=== PATIENT | female | born 1960 | race Caucasian/White ===

== ENCOUNTER 2020-02-06 06:16 | Outpatient (REF) | payer BC, SELFPAY ==
[2020-02-06 11:46] LABS: Cholesterol 213 mg/dL; HDL Cholesterol 51 mg/dL; LDL Cholesterol Calculated 139 mg/dl; Triglycerides 119 mg/dL
== END 2020-02-06 06:17 | disposition home or self-care (01) ==
LOC: HO.HMGCLDS 06:16
PROVIDERS: PCP Family Medicine; Visit Provider Family Medicine
DX: E78.00 Pure hypercholesterolemia, unspecified (principal)
CPT/HCPCS: 36415; 80061

== ENCOUNTER 2020-07-29 06:26 | Outpatient (REF) | payer BC, SELFPAY ==
[2020-07-29 11:49] LABS: Cholesterol 229 mg/dL; HDL Cholesterol 67 mg/dL; LDL Cholesterol Calculated 145 mg/dl; Triglycerides 87 mg/dL
== END 2020-07-29 06:27 | disposition home or self-care (01) ==
LOC: HO.HMGCLDS 06:26
PROVIDERS: PCP Family Medicine; Visit Provider Family Medicine
DX: Z00.00 Encounter for general adult medical examination without abnormal findings (principal); E78.5 Hyperlipidemia, unspecified
CPT/HCPCS: 36415; 80061

== ENCOUNTER → 2020-10-08 13:20 | Outpatient (BNVA) | payer BC, SELFPAY | PROVIDERS: PCP Family Medicine; Visit Provider Surgery Vascular Surgery ==

== ENCOUNTER 2020-10-22 12:47 | Outpatient (REF) | payer BC, SELFPAY ==
--- NOTE | ~2020-10-22 | US_ITS ---
EXAMINATION: RIGHT and LEFT LOWER EXTREMITY VENOUS ULTRASOUND (Reflux Exam) CLINICAL INDICATION: Post bilateral greater and lesser saphenous vein ablation COMPARISON: Previous exam December 2006 TECHNIQUE: Color flow triplex imaging and compression Doppler was performed to evaluate both the deep and the superficial systems bilaterally. To evaluate the superficial system, the examination was performed in the upright position. Color-flow Doppler ultrasound and compression ultrasound were utilized. In addition, maneuvers were utilized to demonstrate reflux. FINDINGS: 1. DEEP VENOUS ULTRASOUND OF THE RIGHT LOWER EXTREMITY: Respiratory variation, normal compression and augmented flow are noted in the right common femoral vein as well as the right popliteal vein and there is no evidence of deep venous thrombosis at these locations. There is no evidence of reflux in the deep system in either the common femoral vein or the popliteal vein. There is no evidence of a Porter's cyst. 2. SUPERFICIAL ULTRASOUND WITH DOPPLER OF RIGHT LOWER EXTREMITY: The right great saphenous vein at the saphenofemoral junction measures 6 mm at mid calf 3 mm and at the ankle measures 4 mm. The remainder of the right greater saphenous vein is not seen. There is a 1.3 seconds reflux seen at the saphenofemoral junction, 2.7 second reflux in the mid calf and 1.2 seconds reflux at the ankle. The right small saphenous vein is not seen. There is a 4 mm varicosity off the lesser saphenous vein/saphenofemoral popliteal junction measures 4 mm and demonstrates 2.9 seconds reflux. There is a varicosity in the proximal thigh that measures 3 mm and does not demonstrate reflux. There is a varicosity in the mid thigh measures 4 mm and demonstrates 3.2 seconds reflux. There is a varicosity in the proximal calf that measures 3 mm and demonstrates 3.2 seconds reflux. 3. DEEP VENOUS ULTRASOUND OF THE LEFT LOWER EXTREMITY: Respiratory variation, normal compression and augmented flow are noted in the left common femoral vein as well as the left popliteal vein and there is no evidence of deep venous thrombosis at these locations. There is 1 second reflux at the left common femoral vein and 0.5 second reflux in the mid femoral vein.. . There is no evidence of a Porter's cyst. 4. SUPERFICIAL ULTRASOUND WITH DOPPLER OF LEFT LOWER EXTREMITY: Left great saphenous vein at the saphenofemoral junction measures 6 mm, at mid calf 3 mm and at the ankle measures 3 mm. The remainder of the left greater saphenous vein is not seen. There is an ex sensory lateral greater saphenous vein that measures 2 to 4 mm. This demonstrates 1.6 seconds reflux. There is no reflux demonstrated in the left great saphenous vein. The left small saphenous vein versus remnant measures 1-2 mm and demonstrates 0.5 second reflux. There is a senior mechanical development engineer in the mid calf that measures 2 mm and does not demonstrate reflux. There is a varicosity off the lesser saphenous vein that measures 4 mm and does not demonstrate reflux. There are 2 varicosities in the proximal thigh that measures 3 mm with 2.3 seconds reflux and 4 mm with 2.7 second reflux.. US/US venous duplex LE BI IMPRESSION: No evidence of DVT. Left venous reflux in the common femoral and mid femoral veins entering maximum 1 second. Right: Post ablation changes to the right greater saphenous vein. There is reflux at the saphenofemoral junction in the remnant right greater saphenous vein and in the mid calf and ankle measuring maximum 2.7 second reflux. Right varicosities with reflux. Left: Post ablation changes of the left greater saphenous vein. Reflux in the left greater saphenous vein and midcalf and ankle measuring maximum 2 seconds. Lateral accessory left greater saphenous vein with reflux. Question lesser saphenous vein versus lesser saphenous vein remnant with 0.5 second reflux. Varicosities in the proximal thigh with reflux. COMPARISON: None TECHNIQUE: Ultrasound of the deep veins is performed from the hip to the calf with compression sonography and color and pulse Doppler assessment. Spectral analysis with color-flow imaging is performed. FINDINGS: RIGHT: There is normal venous compression and respiratory variation and augmented flow. The visualized common femoral vein, superficial femoral vein, profunda femoral vein, popliteal vein, and the trifurcation region shows no evidence of deep venous thrombosis. There is no significant popliteal fossa cyst. LEFT: There is normal venous compression and respiratory variation and augmented flow. The visualized common femoral vein, superficial femoral vein, profunda femoral vein, popliteal vein, and the trifurcation region shows no evidence of deep venous thrombosis. There is no significant popliteal fossa cyst. If the patient's symptoms persist, followup ultrasound in 5 days 7 days might be of value to exclude proximal propagation from a non-visualized calf vein. IMPRESSION: No DVT demonstrated in the lower extremity.
== END 2020-10-22 12:48 | disposition home or self-care (01) ==
LOC: HO.US 12:47
PROVIDERS: Visit Provider Surgery Vascular Surgery
DX: I83.12 Varicose veins of left lower extremity with inflammation (principal); I83.893 Varicose veins of bilateral lower extremities with other complications
CPT/HCPCS: 93970

== ENCOUNTER → 2020-11-03 15:32 | Outpatient (BNVA) | payer BC, SELFPAY | PROVIDERS: PCP Family Medicine; Visit Provider Surgery Vascular Surgery ==

== ENCOUNTER → 2020-11-27 08:32 | Outpatient (BNVA) | payer BC, SELFPAY | PROVIDERS: PCP Family Medicine; Visit Provider Surgery Vascular Surgery | DX: I83.12 Varicose veins of left lower extremity with inflammation (principal) | CPT/HCPCS: 36482 ==

== ENCOUNTER 2020-11-30 14:18 | Outpatient (REF) | payer BC, SELFPAY ==
--- NOTE | ~2020-11-30 | US_ITS ---
EXAMINATION: US VENOUS ULTRASOUND WITH DOPPLER LOWER EXTREMITY, LEFT CLINICAL INFORMATION: Status post left saphenous vein on 11/27/2020 COMPARISON: Bilateral lower extremity venous reflux exam on 10/22/2020 TECHNIQUE: Ultrasound of the deep veins is performed from the hip to the calf with compression sonography and color and pulse Doppler assessment. Spectral analysis with color-flow imaging is performed. FINDINGS: There is normal venous compression and respiratory variation and augmented flow. The visualized common femoral vein, superficial femoral vein, profunda femoral vein, popliteal vein, and the trifurcation region shows no evidence of deep venous thrombosis. There is no significant popliteal fossa cyst. Venaseal material seen starting at the level of the knee. If the patient's symptoms persist, followup ultrasound in 5 days 7 days might be of value to exclude proximal propagation from a non-visualized calf vein. US/US venous duplex LE IMPRESSION: No DVT demonstrated in the left lower extremity.
== END 2020-11-30 14:19 | disposition home or self-care (01) ==
LOC: HO.US 14:18
PROVIDERS: PCP Family Medicine; Visit Provider Surgery Vascular Surgery
DX: M79.605 Pain in left leg (principal)
CPT/HCPCS: 93971

== ENCOUNTER → 2020-12-10 15:38 | Outpatient (BNVA) | payer BC, SELFPAY | PROVIDERS: PCP Family Medicine; Referring Provider Family Medicine; Visit Provider Surgery Vascular Surgery ==

== ENCOUNTER → 2021-01-15 09:38 | Outpatient (BNVA) | payer BC, SELFPAY | PROVIDERS: PCP Family Medicine; Referring Provider Family Medicine; Visit Provider Surgery Vascular Surgery | DX: I83.12 Varicose veins of left lower extremity with inflammation (principal) | CPT/HCPCS: 37765 ==

== ENCOUNTER → 2021-01-26 15:38 | Outpatient (BNVA) | payer BC, SELFPAY | PROVIDERS: PCP Family Medicine; Visit Provider Surgery Vascular Surgery ==

== ENCOUNTER 2021-02-05 08:12 | Outpatient (REF) | payer BC, SELFPAY ==
[2021-02-05 12:50] LABS: Alanine Aminotransferase 19 U/L (0-31); Albumin Level 4.5 g/dL (3.5-5.0); Alkaline Phosphatase 57 U/L (39-117); Anion Gap 14 (12-20); Aspartate Amino Transferase 24 U/L (5-31); Bilirubin Total 1.2 mg/dL (0.0-1.0); Blood Urea Nitrogen 17 mg/dL (9-16); Calcium 8.9 mg/dL (8.4-10.2); Carbon Dioxide 25 mmol/L (22-29); Chloride 106 mmol/L (96-108); Cholesterol 217 mg/dL; Estimated Glomerular Filt Rate > 60; Glucose Fasting 96 mg/dL (60-99); HDL Cholesterol 63 mg/dL; LDL Cholesterol Calculated 133 mg/dl; Potassium 4.1 mmol/L (3.3-5.1); Sodium 141 mmol/L (135-145); Total Protein 7.2 g/dL (6.5-8.0); Triglycerides 105 mg/dL
[2021-02-05 13:16] LABS: TSH reflex Free T4 0.69 uIU/mL (0.32-4.0)
== END 2021-02-05 08:13 | disposition home or self-care (01) ==
LOC: HO.HMGCLDS 08:12
PROVIDERS: PCP Family Medicine; Visit Provider Family Medicine
DX: Z00.00 Encounter for general adult medical examination without abnormal findings (principal)
CPT/HCPCS: 36415; 80053; 80061; 84443

== ENCOUNTER → 2021-02-26 12:16 | Outpatient (BNVA) | payer BC, SELFPAY | PROVIDERS: PCP Family Medicine; Visit Provider Nurse Practitioner Family ==

== ENCOUNTER → 2021-05-11 15:41 | Outpatient (BNVA) | payer BC, SELFPAY | PROVIDERS: PCP Family Medicine; Visit Provider Surgery Vascular Surgery ==

== ENCOUNTER 2022-04-15 06:13 | Outpatient (REF) | payer BC, SELFPAY ==
[2022-04-15 13:30] LABS: Alanine Aminotransferase 21 U/L (0-31); Albumin Level 4.3 g/dL (3.5-5.0); Alkaline Phosphatase 57 U/L (39-117); Anion Gap 12 (12-20); Aspartate Amino Transferase 20 U/L (5-31); Bilirubin Total 0.5 mg/dL (0.0-1.0); Blood Urea Nitrogen 15 mg/dL (9-16); Carbon Dioxide 28 mmol/L (22-29); Chloride 106 mmol/L (96-108); Cholesterol 203 mg/dL; Estimated Glomerular Filt Rate > 60; Glucose Fasting 98 mg/dL (60-99); HDL Cholesterol 47 mg/dL; LDL Cholesterol Calculated 132 mg/dl; Potassium 4.3 mmol/L (3.3-5.1); Sodium 142 mmol/L (135-145); TSH reflex Free T4 0.67 uIU/mL (0.32-4.0); Total Protein 6.7 g/dL (6.5-8.0); Triglycerides 121 mg/dL; Vitamin D 25-OH Total 37.3 ng/mL (>30)
== END 2022-04-15 06:14 | disposition home or self-care (01) ==
LOC: HO.HMGCLDS 06:13
PROVIDERS: PCP Family Medicine; Visit Provider Family Medicine
DX: Z00.00 Encounter for general adult medical examination without abnormal findings (principal); E55.9 Vitamin D deficiency, unspecified; Z13.220 Encounter for screening for lipoid disorders; Z13.29 Encounter for screening for other suspected endocrine disorder
CPT/HCPCS: 36415; 80053; 80061; 82306; 84443

== ENCOUNTER 2022-04-22 16:24 | Outpatient (REF) | payer BC, SELFPAY ==
[2022-04-22 18:29] LABS: Appearance Urine Clear; Color Urine Orange; Glucose Urine UA Negative (Negative); Leukocyte Esterase Urine Moderate (2+) (Negative); Nitrite Urine Positive (Negative); PH 5.5 (5.0-9.0); Specific Gravity - Urine 1.025 (1.005-1.025); UMIC TRIGGER UA YES; Urine Blood Negative (Negative); Urine Ketones Negative (Negative); Urine Protein Trace mg/dL (Neg-Trace)
[2022-04-22 18:30] LABS: Bacteria Urine None Seen (None Seen); Hyaline Casts Urine 0-2 /LPF (0-2); WBC Urine >50 /HPF (0-5)
== END 2022-04-22 16:25 | disposition home or self-care (01) ==
LOC: HO.LAB 16:24
PROVIDERS: Visit Provider Family Medicine
DX: R30.0 Dysuria (principal)
CPT/HCPCS: 81001; 87086

== ENCOUNTER → 2022-07-07 15:34 | Outpatient (BNVA) | payer BC, SELFPAY | PROVIDERS: PCP Family Medicine; Visit Provider Surgery Vascular Surgery | DX: Z13.89 Encounter for screening for other disorder (principal) ==

== ENCOUNTER → 2022-07-08 15:44 | Outpatient (BNVA) | payer BC, SELFPAY | PROVIDERS: PCP Family Medicine; Visit Provider Nurse Practitioner Family | DX: Z13.89 Encounter for screening for other disorder (principal) ==

== ENCOUNTER 2022-08-19 10:14 | Outpatient (REF) | payer BC, SELFPAY ==
--- NOTE | ~2022-08-19 | MM_ITS ---
EXAMINATION: BONE DENSITOMETRY CLINICAL INDICATION: Osteoporosis. COMPARISON: Baseline BD dated 12/06/2019. TECHNIQUE: Using a [employer] DXA System (software version: 13.1) manufactured by [employer], dual-energy x-ray absorptiometry was performed of the lumbar spine and left hip. The images are of good technical quality. Summary results are attached. FINDINGS: AP SPINE L1-L4: Current: BMD 0.868 g/cm2, Z-score -1.5, T-score -2.6, osteoporosis, 6.1% increase from baseline (<5% change is not significant). Baseline: BMD 0.818 g/cm2. LEFT FEMUR, NECK: Current: BMD 0.850 g/cm2, Z-score -0.2, T-score -1.4, osteopenia. Baseline: BMD 0.780 g/cm2. LEFT FEMUR, TOTAL: Current: BMD 0.882 g/cm2, Z-score -0.1, T-score -1.0, normal, 2.8% increase from baseline (<5% change is not significant). Baseline: BMD 0.858 g/cm2. IDENTIFIED RISK FACTORS: Menopause, hysterectomy, family history (parent hip fracture), osteoporosis. HISTORY OF FRACTURE: Tibia/fibula, ribs. MEDICATIONS: Calcium or multivitamin. Vitamin D, bisphosphonate. MM/XR DEXA axial skeleton IMPRESSION: 1. DIAGNOSIS: Osteoporosis based on the lowest T-score value of -2.6 in the lumbar spine applying World Health Organization criteria. 2. 10-YEAR FRACTURE RISK PREDICTION, FRAX: According to the guidelines, FRAX calculation should only be performed on patients in the osteopenia bone density category. Therefore, FRAX was not performed on this patient. 3. Treatment Recommendations: NOF guidelines recommend consideration for treatment in postmenopausal women and men age 50 and older presenting with the following: -A hip or vertebral (clinical or morphometric) fracture. -T-score less than or equal to -2.5 at the femoral neck or spine after appropriate evaluation to exclude secondary causes. -Low bone mass at the hip or spine and a 10-year fracture probability by FRAX of greater than or equal to 3% for hip fracture or greater than or equal to 20% for major osteoporotic fracture based on the [place] adapted WHO algorithm. 4. Other Recommendations: All treatment decisions require clinical judgment and consideration of individual patient factors, including patient preferences, comorbidities, previous drug use, risk factors not captured in the FRAX model (e.g. frailty, falls, vitamin D deficiency, increased bone turnover, interval significant decline in bone density) and possible under or overestimation of fracture risk by FRAX. Additional medical evaluation for secondary cause of low bone mineral density may be appropriate. FUTURE SCAN RECOMMENDATION: People with diagnosed cases of osteoporosis or at high risk for fracture should have regular bone mineral density tests. For patients eligible for Medicare, routine testing is allowed once every 2 years. The testing frequency can be increased to one year for patients who have rapidly progressing disease, those who are receiving or discontinuing medical therapy to restore bone mass, or have additional risk factors.
== END 2022-08-19 10:15 | disposition home or self-care (01) ==
LOC: HO.MAMMO 10:14
PROVIDERS: Visit Provider Family Medicine
DX: M81.0 Age-related osteoporosis without current pathological fracture (principal)
CPT/HCPCS: 77080

== ENCOUNTER → 2022-08-26 10:27 | Outpatient (BNVA) | payer BC, SELFPAY | PROVIDERS: PCP Family Medicine; Visit Provider Surgery Vascular Surgery | DX: I83.11 Varicose veins of right lower extremity with inflammation (principal) | CPT/HCPCS: 37765 ==

== ENCOUNTER → 2022-09-08 15:28 | Outpatient (BNVA) | payer BC, SELFPAY | PROVIDERS: PCP Family Medicine; Visit Provider Surgery Vascular Surgery ==

== ENCOUNTER 2022-09-23 10:43 | Day surgery (SDC) | payer BC, SELFPAY ==
[2022-09-21 15:32] VITALS: BMI 26.7
--- NOTE | 2022-09-22 10:15 | P.CONAN_ITS ---
Documented by User: Dipika Mejia NP 09/22/22 10:17 HPI - Anesthesia Eval Consult details Narrative: 62yo F for Colonoscopy s/p L mastectomy 2021 [facility] Active Problems Active Problems: All Active Problems (Updated 09/21/22 @ 15:33 by Mireille Graves RN) Hyperlipidemia (Acute) Osteoporosis (Acute) Polyarthralgia (Acute) Varicose veins of left lower extremity with inflammation (Acute) Varicose veins of right lower extremity with inflammation (Acute) Adult general medical exam (Acute) Screening for colon cancer (Acute) Screening for cervical cancer (Acute) Breast cancer screening by mammogram (Acute) Breast cancer (Acute) Dysuria (Acute) Past Medical History Medical History (Updated 09/21/22 @ 15:33 by Mireille Graves RN) Breast cancer Hyperlipidemia Osteoporosis Varicose vein of leg Family History Family History Father Squamous cell carcinoma in situ Mother No problems noted. Sister No problems noted. Brother No problems noted. Brother No problems noted. Daughter No problems noted. Daughter No problems noted. Surgical History Surgical History (Updated 09/21/22 @ 15:31 by Mireille Graves RN) H/O colonoscopy History of hysterectomy History of open reduction and internal fixation (ORIF) procedure Hx laparoscopic cholecystectomy Hx of mastectomy Hx of varicose vein stripping Social History Social History Patient Tobacco Use Status: Former Tobacco user e-Cigarette/Vaping Use: Never Used Second Hand Smoke Exposure: No Substance Use Frequency: Occasionally Are you DNR?: No Advance Directives: No Advance Directives Information Provided: Yes Nutrition Risks: No Nutritional Risk service: No Current occupational status: employed 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 occupational exposures/hazards: No Cognitive needs: No Hearing needs: No Vision needs: No Meds Allergies Allergy/AdvReac Type Severity Reaction Status Date / Time house dust Allergy Mild Nasal Verified 09/08/22 15:37 congestion Seasonal Allergies Allergy Mild watery, Verified 09/08/22 15:37 cough Home Medications Medication Instructions Recorded Confirmed Last Taken Type alendronate 70 mg tablet 70 mg PO QWEEK 02/14/20 09/21/22 Unknown History tizanidine 4 mg tablet 4 mg PO BEDTIME PRN Muscle Spasm 02/14/20 09/21/22 Unknown History calcium carbonate 600 mg calcium 600 mg PO DAILY 08/14/20 09/21/22 Unknown History (1,500 mg) tablet (Calcium) lactobacillus combination no.8 3 3,000 mmu cells PO DAILY 08/14/20 09/21/22 Unknown History billion cell capsule (Adult Probiotic) [id number]-gow-mqihi ac 400 1 tab PO DAILY 08/14/20 09/21/22 Unknown History mcg-calcium carb 500 mg-vit K1 20 mcg tablet (Women's 50 Plus Multivitamin) psyllium husk 0.4 gram capsule 0.4 g PO DAILY 08/14/20 09/21/22 Unknown History (Fiber (psyllium husk)) calcipotriene 0.005 % topical cream 1 applic topical BID PRN skin rash 02/23/22 09/21/22 Unknown History clobetasol 0.05 % topical cream 1 appl topical TID PRN Skin 02/23/22 09/21/22 Unknown History Irritation red yeast rice 600 mg tablet 600 mg PO BID 02/23/22 09/21/22 Unknown History estradiol 10 mcg vaginal tablet 10 mcg vaginal DAILY 07/07/22 09/21/22 Unknown History (Yuvafem) mirabegron 25 mg tablet,extended 25 mg PO DAILY 07/07/22 09/21/22 Unknown History release 24 hr (Myrbetriq) D-harshal PO DAILY 07/08/22 07/08/22 Unknown History glucosamine-chondroitin 250 mg-200 2 tab PO DAILY 07/08/22 09/21/22 Unknown History mg tablet (Osteo Bi-Flex) omeprazole 20 mg capsule,delayed 20 mg PO DAILY PRN acid reflux 07/08/22 09/21/22 Unknown History release Exam Exam Date and Time: September 22, 2022 1015 Height,Weight and Vital Signs: Height 5 ft 3 in Weight 68.492 kg Pertinent Lab Results Pertinent Lab Results: Laboratory Tests 07/15/19 04/15/22 06:16 06:22 WBC 5.6 Hgb 14.2 Hct 42.3 Plt Count 263 Sodium 142 Potassium 4.3 Chloride 106 Carbon Dioxide 28 BUN 15 Creatinine 0.71 Assessment and Plan Assessment Anesthesia Assessment: Chart Reviewed Documented by User: Reji Cisneros MD 09/23/22 11:10 PMFSH Past Medical History Medical History (Updated 09/21/22 @ 15:33 by Mireille Graves RN) Breast cancer Hyperlipidemia Osteoporosis Varicose vein of leg Family History Family History Father Squamous cell carcinoma in situ Mother No problems noted. Sister No problems noted. Brother No problems noted. Brother No problems noted. Daughter No problems noted. Daughter No problems noted. Family history of problems with anesthesia: No Surgical History Surgical History (Updated 09/21/22 @ 15:31 by Mireille Graves RN) H/O colonoscopy History of hysterectomy History of open reduction and internal fixation (ORIF) procedure Hx laparoscopic cholecystectomy Hx of mastectomy Hx of varicose vein stripping History of Problems with Anesthesia: No Social History Social History Patient Tobacco Use Status: Former Tobacco user e-Cigarette/Vaping Use: Never Used Second Hand Smoke Exposure: No Substance Use Frequency: Occasionally Are you DNR?: No Advance Directives: No Advance Directives Information Provided: Yes Nutrition Risks: No Nutritional Risk service: No Current occupational status: employed 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 occupational exposures/hazards: No Cognitive needs: No Hearing needs: No Vision needs: No Meds Allergies Allergy/AdvReac Type Severity Reaction Status Date / Time house dust Allergy Mild Nasal Verified 09/08/22 15:37 congestion Seasonal Allergies Allergy Mild watery, Verified 09/08/22 15:37 cough Home Medications Medication Instructions Recorded Confirmed Last Taken Type alendronate 70 mg tablet 70 mg PO QWEEK 02/14/20 09/21/22 Unknown History tizanidine 4 mg tablet 4 mg PO BEDTIME PRN Muscle Spasm 02/14/20 09/21/22 Unknown History calcium carbonate 600 mg calcium 600 mg PO DAILY 08/14/20 09/21/22 Unknown History (1,500 mg) tablet (Calcium) lactobacillus combination no.8 3 3,000 mmu cells PO DAILY 08/14/20 09/21/22 Unknown History billion cell capsule (Adult Probiotic) fruqtxsl-shn-jkuel ac 400 1 tab PO DAILY 08/14/20 09/21/22 Unknown History mcg-calcium carb 500 mg-vit K1 20 mcg tablet (Women's 50 Plus Multivitamin) psyllium husk 0.4 gram capsule 0.4 g PO DAILY 08/14/20 09/21/22 Unknown History (Fiber (psyllium husk)) calcipotriene 0.005 % topical cream 1 applic topical BID PRN skin rash 02/23/22 09/21/22 Unknown History clobetasol 0.05 % topical cream 1 appl topical TID PRN Skin 02/23/22 09/21/22 Unknown History Irritation red yeast rice 600 mg tablet 600 mg PO BID 02/23/22 09/21/22 Unknown History estradiol 10 mcg vaginal tablet 10 mcg vaginal DAILY 07/07/22 09/21/22 Unknown History (Yuvafem) mirabegron 25 mg tablet,extended 25 mg PO DAILY 07/07/22 09/21/22 Unknown History release 24 hr (Myrbetriq) D-harshal PO DAILY 07/08/22 07/08/22 Unknown History glucosamine-chondroitin 250 mg-200 2 tab PO DAILY 07/08/22 09/21/22 Unknown History mg tablet (Osteo Bi-Flex) omeprazole 20 mg capsule,delayed 20 mg PO DAILY PRN acid reflux 07/08/22 09/21/22 Unknown History release Exam Airway Mallampati Class: II TM Dist: >3cm Neck ROM: Full Assessment and Plan Assessment Anesthesia Assessment: Anesthesia Plan Discussed Final Anesthetic Review Family History of Problems with Anesthesia: No History of Problems with Anesthesia: No NPO: Yes ASA Class: II Final Preanesthetic Review: No Changes in Pt Med Stat, Meds/Allgs Chart Reviewed, Consent Obtained/Reviewed and Anes Risks/Benef Reviewed Patient Risk: Low Procedure Risk: Low Anesthetic Plan Anesthetic Plan: MAC: Disposition: Standard PACU
[2022-09-23] MEDS: Lactated Ringers 1,000 ML 100 ML IVCONT (11:05)
[2022-09-23 11:17] VITALS: BP 134/81; PULSE 82; RESP 18; TEMP 36.7; O2SAT 99
--- NOTE | 2022-09-23 11:29 | MHC.SHP ---
Pre-Procedural Eval Section A Date of Service: 09/23/22 The patient is an INPATIENT: No The History & Physical has been completed within 30 days and I have reviewed it.: No Section B Chief Complaint: Screening Relevant Family History (Specify if Yes): No Relevant Social History: Tobacco Use (Former smoker) Present Medications: see Short Stay Collaborative assessment Medical History: Significant History (Hyperlipidemia, osteoporosis, history of breast cancer) History of Previous Operations: Relevant previous surgery/procedure and date(s) (H/O colonoscopy History of hysterectomy History of open reduction and internal fixation (ORIF) procedure Hx of mastectomy) Allergies: Allergies Allergy/AdvReac Type Severity Reaction Status Date / Time house dust Allergy Mild Nasal Verified 09/08/22 15:37 congestion Seasonal Allergies Allergy Mild watery, Verified 09/08/22 15:37 cough Review of Systems Sugical H&P ROS: Negative: Constitution, Cardiovascular, Respiratory and Gastrointestinal Exam Surgical H&P Exam: Normal: Heart, Normal: Lungs, Normal: Extremities and Normal: Abdomen Plan Diagnosis/Plan: Unchanged I have reviewed the history and physical and performed a pertinent physical examination on my patient. No changes have occurred unless specified. Time Spent With Patient Time: Total time managing care of this patient today ____ minutes.
--- NOTE | 2022-09-23 12:03 | P.OP_ITS ---
Operative Note Operative Note Date of Service: 09/23/22 Narrative: COLONOSCOPY TILL CECUM Pre-op diagnosis: Colon cancer screening Post-op diagnosis:? Diverticulosis Endoscopist:? Shanelle Em MD Anesthesia:?MAC Consent: Indications for the procedure and potential complications of bleeding, perforation, reaction to medications and missed diagnosis were discussed with the patient and informed consent was obtained. Instrument: Olympus PCF H 190 L variable stiffness pediatric colonoscope Monitoring: Vital signs and clinical assessment, intermittent blood pressure monitoring, continuous EKG monitoring, Pulse oximetry and Carbon Dioxide monitoring were done throughout the procedure. Please see anesthesia flowsheet. Colon withdrawl time was 14 minutes. Procedure: The patient was placed in the left lateral decubitis position and pre-procedure medications were administered. After a digital rectal examination of the ano-rectum, the video colonoscope was inserted into the rectum and advanced through the colon to the cecum. The colonoscope was slowly withdrawn in a retrograde panoramic fashion and the colon mucosa was carefully examined including a retroflexed view of the rectum. Findings and interventions are described below. Procedure Difficulty: Without difficulty Findings: Terminal Ileum: Not evaluated Cecum: Normal Ascending Colon: Normal Transverse Colon: Normal Descending Colon: Normal Sigmoid Colon: Moderate diverticulosis Rectum: Normal Ano-rectum: Normal Colon preparation: Excellent Impression and Post Procedure Diagnosis: Colonoscopy Findings: No polyps were detected Moderate diverticulosis seen in the sigmoid colon Plan: Patient has an appointment on 10/07/22 in the GI Clinic with Eunice Mejias FNP- [facility]. Repeat Colonoscopy in 10 years. Above findings were reviewed with the patient and diverticulosis handout was given in the discharge area
[2022-09-23 12:44] VITALS: BP 104/60; PULSE 78; RESP 16; TEMP 36.1; O2SAT 98
[2022-09-23 12:59] VITALS: BP 121/74; PULSE 80; RESP 16; TEMP 36.4; O2SAT 98
[2022-09-23 13:14] VITALS: BP 132/83; PULSE 75; RESP 14; TEMP 36.8; O2SAT 98
== END 2022-09-23 13:35 | disposition home or self-care (01) ==
PROVIDERS: PCP Family Medicine; Visit Provider Internal Medicine Gastroenterology
PROC: 0DJD8ZZ Inspection of Lower Intestinal Tract, Via Natural or Artificial Opening Endoscopic (ICD-10-PCS; CPT 45378; principal; 2022-09-23 12:20)
DX: Z12.11 Encounter for screening for malignant neoplasm of colon (principal); K57.30 Diverticulosis of large intestine without perforation or abscess without bleeding; K21.9 Gastro-esophageal reflux disease without esophagitis; E78.5 Hyperlipidemia, unspecified; M81.0 Age-related osteoporosis without current pathological fracture; J30.2 Other seasonal allergic rhinitis; Z79.899 Other long term (current) drug therapy; Z85.3 Personal history of malignant neoplasm of breast; Z90.12 Acquired absence of left breast and nipple; Z98.890 Other specified postprocedural states; Z87.891 Personal history of nicotine dependence
CPT/HCPCS: 45378

== ENCOUNTER 2022-10-07 07:21 | Outpatient (REF) | payer BC, SELFPAY ==
[2022-10-07 11:59] LABS: Appearance Urine Cloudy; Color Urine Yellow; Glucose Urine UA Negative (Negative); Leukocyte Esterase Urine Moderate (2+) (Negative); Nitrite Urine Negative (Negative); PH 6.5 (5.0-9.0); UMIC TRIGGER UA YES; Urine Blood Negative (Negative); Urine Ketones Negative (Negative); Urine Protein Negative (Neg-Trace)
[2022-10-07 12:10] LABS: Cholesterol 232 mg/dL; HDL Cholesterol 52 mg/dL; LDL Cholesterol Calculated 162 mg/dl; Triglycerides 90 mg/dL
[2022-10-07 12:17] LABS: Bacteria Urine 1+ (None Seen); RBC Urine 0-2 /HPF (0-2); Squamous Epithelial Cell Urine >20 /HPF (0-2); WBC Urine 21-50 /HPF (0-5)
[2022-10-13 15:58] LABS: Progesterone <0.1 ng/mL
[2022-10-14 20:28] LABS: Estrogen 97.5 pg/mL
== END 2022-10-07 07:22 | disposition home or self-care (01) ==
LOC: HO.HMGCLDS 07:21
PROVIDERS: PCP Family Medicine; Visit Provider Family Medicine
DX: Z00.00 Encounter for general adult medical examination without abnormal findings (principal); E78.5 Hyperlipidemia, unspecified
CPT/HCPCS: 36415; 80061; 81001; 82672; 84144

== ENCOUNTER 2023-01-13 10:35 | Outpatient (AMB) | payer BC, SELFPAY ==
[2023-01-13 10:39] VITALS: BP 128/64; PULSE 87; RESP 14; TEMP 37.1; O2SAT 98; BMI 26.0
--- NOTE | 2023-01-13 10:39 | MHC.PC.OV ---
Vital Signs 01/13/23 10:39 Height 5 ft 4 in Weight 151 lb 8 oz BMI 26.0 BP 128/64 Blood Pressure Location Lt brachial Position Sitting Respiration 14 Pulse 87 Pulse Source Pulse Oximeter Temp 98.7 F Temp Source Oral Pulse Oximetry (%) 98 Oxygen Delivery Method Room Air Intake Visit Reasons: f/u [facility] Intake Note: Patient is here for a follow up. Patient would like to follow up about the bone density results as well. 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 Had started her on artovastatin 20mg daily. No recent lipid panel to review. She has been taking her artovastatin and denies any problems with this. She is tested positive for osteoporosis. T-score improved on alendronate from -3.0 to -2.6. PFSH Medical History (Updated 09/21/22 @ 15:33 by Mireille Graves RN) Varicose vein of leg Breast cancer Hyperlipidemia Osteoporosis Surgical History (Updated 09/21/22 @ 15:31 by Mireille Graves RN) Hx laparoscopic cholecystectomy Hx of varicose vein stripping H/O colonoscopy Hx of mastectomy History of open reduction and internal fixation (ORIF) procedure History of hysterectomy Family History Father Squamous cell carcinoma in situ Mother No problems noted. Sister No problems noted. Brother No problems noted. Brother No problems noted. Daughter No problems noted. Daughter No problems noted. 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 Current occupational exposures/hazards: No Cognitive needs: No Hearing needs: No Vision needs: No Physical exam (Primary Care) Vital Signs: Last Vital Signs Temp 98.7 F 01/13/23 10:39 Pulse 87 01/13/23 10:39 Resp 14 01/13/23 10:39 BP 128/64 01/13/23 10:39 Pulse Ox 98 01/13/23 10:39 Oxygen Delivery Method Room Air 01/13/23 10:39 BMI result Body Mass Index 26.0 Tobacco/Smoking Status: Tobacco use Status Tobacco use date assessed 10/28/22 01/13/23 10:47 Patient Tobacco Use Status Former Tobacco user 01/13/23 10:47 e-Cigarette/Vaping Use Never Used 01/13/23 10:47 Assessment and Plan Assessment & Plan (1) Hyperlipidemia: Code(s): E78.5 - Hyperlipidemia, unspecified Plan: Patient was started on atorvastatin at her last visit. She is tolerating this well. She will have her labs drawn prior to her next visit in week follow-up on lipid levels (2) Breast cancer: Comment: left mastectomy January 05, 2022. [facility]. Code(s): C50.919 - Malignant neoplasm of unspecified site of unspecified female breast Plan: Currently stable. She has an upcoming ultrasound scheduled. Follow-up with Hematology-Oncology as recommended (3) Osteoporosis: Code(s): M81.0 - Age-related osteoporosis without current pathological fracture Plan: T-score as improved on alendronate from -3.0 to -2.6. Continue alendronate Orders: Orders Comprehensive [place]. Panel Fast Today E78.5 - Hyperlipidemia, unspecified, Z00.00 - Encounter for general adult medical examination without abnormal findings Lipid Panel Today E78.5 - Hyperlipidemia, unspecified, Z00.00 - Encounter for general adult medical examination without abnormal findings Thyroid Stimulating Hormone Today E03.9 - Hypothyroidism, unspecified, E78.5 - Hyperlipidemia, unspecified Complete Blood Count Auto Diff Today E78.5 - Hyperlipidemia, unspecified, Z00.00 - Encounter for general adult medical examination without abnormal findings Triiodothyronine T3 Total Today E03.9 - Hypothyroidism, unspecified, E78.5 - Hyperlipidemia, unspecified Free T4 (Free Thyroxine) Today E03.9 - Hypothyroidism, unspecified, E78.5 - Hyperlipidemia, unspecified UA and rflx microscopic Today E78.5 - Hyperlipidemia, unspecified, Z00.00 - Encounter for general adult medical examination without abnormal findings Coding Level of Care Code Est Pt Level 3 (43681) Diagnoses Hyperlipidemia E78.5 Breast cancer C50.919 Osteoporosis M81.0
== END 2023-01-13 11:34 | disposition home or self-care (01) ==
PROVIDERS: PCP Family Medicine; Visit Provider Family Medicine
DX: E78.5 Hyperlipidemia, unspecified (principal); C50.919 Malignant neoplasm of unspecified site of unspecified female breast; M81.0 Age-related osteoporosis without current pathological fracture
CPT/HCPCS: 99213

== ENCOUNTER 2023-04-14 06:25 | Outpatient (REF) | payer BC, SELFPAY ==
[2023-04-14 12:05] LABS: MANUAL DIFF FLAG NO
[2023-04-14 12:13] LABS: Appearance Urine Clear; Color Urine Yellow; Glucose Urine UA Negative (Negative); Leukocyte Esterase Urine Negative (Negative); Nitrite Urine Negative (Negative); PH 6.5 (5.0-9.0); Urine Blood Negative (Negative); Urine Ketones Negative (Negative); Urine Protein Negative (Neg-Trace)
[2023-04-14 12:36] LABS: Basophils Absolute Auto 0.1 X10*3/uL (0.0-0.2); Basophils Percent Auto 1.1 % (0-2); Eosinophils Absolute Auto 0.1 X10*3/uL (0.0-0.4); Eosinophils Percent Auto 2.5 % (0-4); Hematocrit 40.2 % (37.0-47.0); Hemoglobin 13.4 g/dl (12.0-16.0); Imm Gran Abs Auto 0.02 X10*3/uL (0.00-0.03); Imm Gran Pct Auto 0.4 % (0.0-0.4); Lymphocytes Absolute Auto 1.6 X10*3/uL (1.2-4.9); Lymphocytes Percent Auto 28.3 % (20-40); Mean Corpuscular HGB Conc 33.3 g/dl (31.0-35.0); Mean Corpuscular Hemoglobin 32.4 pg (27.0-33.0); Mean Corpuscular Volume 97.1 fL (80.0-98.0); Mean Platelet Volume 10.7 fL (9.4-12.3); Monocytes Absolute Auto 0.4 X10*3/uL (0.1-1.2); Monocytes Percent Auto 7.5 % (2-11); Neutrophils Absolute Auto 3.4 x10*3/uL (2.0-8.3); Neutrophils Percent Auto 60.2 % (45-73); Platelet Count 258 X10*3/uL (160-400); Red Blood Count 4.14 X10*6/uL (4.20-5.50); Red Cell Distribution Width 13.1 % (11.0-16.0); White Blood Count 5.6 X10*3/uL (4.8-10.8)
[2023-04-14 13:15] LABS: Alanine Aminotransferase 26 U/L (0-31); Albumin Level 4.5 g/dL (3.5-5.0); Alkaline Phosphatase 64 U/L (39-117); Anion Gap 11 (12-20); Aspartate Amino Transferase 25 U/L (5-31); Bilirubin Total 0.6 mg/dL (0.0-1.0); Blood Urea Nitrogen 19 mg/dL (9-16); Calcium 9.4 mg/dL (8.4-10.2); Carbon Dioxide 28 mmol/L (22-29); Chloride 107 mmol/L (96-108); Cholesterol 151 mg/dL (<200); Estimated Glomerular Filt Rate > 60; Glucose Fasting 101 mg/dL (60-99); HDL Cholesterol 65 mg/dL (>40); LDL Cholesterol Calculated 73 mg/dL (<100); Sodium 142 mmol/L (135-145); Total Protein 7.2 g/dL (6.5-8.0); Triglycerides 65 mg/dL (<150)
[2023-04-14 13:49] LABS: Thyroid Stimulating Hormone 0.81 uIU/mL (0.32-4.0)
[2023-04-15 04:59] LABS: Triiodothyronine T3 Total 126 ng/dL (76-181)
== END 2023-04-14 06:26 | disposition home or self-care (01) ==
LOC: HO.HMGCLDS 06:25
PROVIDERS: PCP Family Medicine; Visit Provider Family Medicine
DX: Z00.00 Encounter for general adult medical examination without abnormal findings (principal); E03.9 Hypothyroidism, unspecified; E78.5 Hyperlipidemia, unspecified; R30.0 Dysuria
CPT/HCPCS: 36415; 80053; 80061; 81003; 84439; 84443; 84480; 85025

== ENCOUNTER 2023-04-28 10:44 | Outpatient (AMB) | payer BC, SELFPAY ==
--- NOTE | 2023-04-28 11:11 | MHC.PC.OV ---
Vital Signs 04/28/23 11:12 Height 5 ft 4 in Weight 150 lb BMI 25.7 BP 128/72 Blood Pressure Location Rt brachial Position Sitting Respiration 13 Pulse 80 Pulse Source Pulse Oximeter Pulse Oximetry (%) 100 Oxygen Delivery Method Room Air Intake Visit Reasons: CPE with f/u labs and health maintenance Intake Note: Patient is here for her physical and reports she had her labs done on 04/14/23. Patient reports she has had her OBGYN physical through [facility] and a recent mammogram through [facility] 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 Accompanied by: Self / Same As Patient Allergies house dust Allergy (Mild, Verified 04/28/23 11:17) Nasal congestion Seasonal Allergies Allergy (Mild, Verified 04/28/23 11:17) watery, cough Medication List - Last Reconciled 04/28/23 by Bonilla Gomez MD alendronate 70 mg PO QWEEK atorvastatin 20 mg PO BEDTIME 30 days atorvastatin 20 mg PO BEDTIME calcium carbonate (Calcium) 600 mg PO DAILY [D-harshal PO DAILY] estradiol (Yuvafem) 10 mcg vaginal DAILY glucosamine-chondroitin 250-200 mg (Osteo Bi-Flex) 2 tabs PO DAILY lactobacillus combination no.8 (Adult Probiotic) 3,000 mmu cells PO DAILY mirabegron ER (Myrbetriq) 25 mg PO DAILY pa-ced-spncj-calcium carb-K1 400 mcg-500 mg calcium-20 mcg (Women's 50 Plus Multivitamin) 1 tab PO DAILY omeprazole 20 mg PO DAILY psyllium husk (Fiber (psyllium husk)) 0.4 grams PO DAILY Tobacco use date assessed: 04/28/23 Dental Screening Dental Screen Date: 04/28/23 Did you have a dental visit in the last 12 months?: Yes Did you have a dental problem in the last 6 months where you did not have access to dental care?: No Was dental information given to patient?: Patient has dentist HPI CPE with f/u labs and health maintenance HPI Details 63 y/o female presents for a CPE with f/u labs and health maintenance. Labs were drawn 04/14/23. Reviewed labs with pt. Elevated fasting glucose of 101. Triglycerides 65. TC 151. LDL 73. HDL 65. She is on artovastatin 20mg. She reports she is tolerating artovastatin well. [facility] Medical History Varicose vein of leg Breast cancer Hyperlipidemia Osteoporosis Surgical History Hx laparoscopic cholecystectomy Hx of varicose vein stripping H/O colonoscopy Hx of mastectomy History of open reduction and internal fixation (ORIF) procedure History of hysterectomy Family History (Updated 04/28/23 @ 11:20 by Jovanna Yousif CMA) Father Squamous cell carcinoma in situ Mother No problems noted. Sister No problems noted. Brother No problems noted. Brother No problems noted. Daughter No problems noted. Daughter No problems noted. 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 1. Little interest or pleasure in doing things: not at all 2. Feeling down, depressed, or hopeless: not at all 3. Trouble falling or staying asleep, or sleeping too much: not at all 4. Feeling tired or having little energy: not at all 5. Poor appetite or overeating: not at all 6. Feeling bad about yourself - or that you are a failure or have let yourself or your family down: not at all 7. Trouble concentrating on things, such as reading the newspaper or watching television: not at all 8. Moving or speaking so slowly that other people could have noticed. Or the opposite - being so fidgety or restless that you have been moving around a lot more than usual: not at all 9. Thoughts that you would be better off or of hurting yourself in some way: not at all Total score: 0 Depression Screening Interpretation: Negative Depression Screening Done: Yes 32548 - PHQ-9 Billing: Yes Source: Developed by Drs. Nacho Alvarado, Xavier Gates and colleagues, with an educational eliseo from [employer]. Thrive Questionnaire Date Thrive assessed: 04/28/23 I am a: Patient What is your living situation today?: I have a steady place to live Within the past 12 months, did the food you bought not last and you didn't have the money to get more?: Never true Within the past 12 months, did you worry whether your food would run out before you got money to buy more?: Never true Do you have trouble paying for medicines?: No Do you have trouble getting transportation to medical appointments?: No Do you have trouble paying your heating and electricity bill?: No Do you have trouble taking care of your child, family member or friend?: No Do you have trouble with day-to-day activities such as bathing, preparing meals, shopping, managing finances, etc.?: No Are you currently unemployed and looking for a job?: No Are you interested in more education?: No Please select the resources that you would like help with: None Currently or been in a relationship where the following occur: no concerns reported AUDIT C Alcohol Use Questionnaire (AUDIT-C) 1. How often do you have a drink containing alcohol?: Never 3. How often do you have six or more drinks on one occasion?: Never Total Score: 0 KANDACE-7 AMB Questionnaire KANDACE-7 Date KANDACE - 7 assessed: 04/28/23 Feeling nervous, anxious, or on edge: 0 = Not at all Not being able to stop or control worryin = Not at all Worrying too much about different things: 0 = Not at all Trouble relaxin = Not at all Being so restless that it is hard to sit still: 0 = Not at all Becoming easily annoyed or irritable: 0 = Not at all Feeling afraid as if something awful might happen: 0 = Not at all Total KANDACE-7 score (0-4 normal; 5-9 mild; 10-14 moderate; 15-21 severe): 0 Source: Developed by Iza Wan Kurt Kroenke and colleagues, with an educational eliseo from [employer]. KANDACE-7 Assessment Billing KANDACE-7 Assessment Tool: KANDACE-7 Assessment 74151 Review of Systems Const Denies chills, Denies fatigue, Denies fever(s), Denies headache(s) and Denies weakness Eyes Denies change in vision ENT Denies dizziness, Denies headache(s), Denies hearing loss, Denies nasal congestion, Denies sinus pain, Denies sinus pressure and Denies sore throat Card Denies chest pain, Denies lightheadedness, Denies dyspnea and Denies other (palpitations) Resp Denies cough, Denies dyspnea and Denies wheezing GI Denies abdominal pain, Denies melena, Denies hematochezia, Denies change in bowel habits, Denies dyspepsia and Denies nausea Denies hematuria and Denies dysuria Musc Denies abnormal gait, Denies myalgias, Denies arthralgias, Denies numbness and Denies tingling Skin/Breast Denies rash, Denies unusual bruising and Denies wounds Neuro Denies abnormal gait, Denies dizziness, Denies headache(s), Denies memory loss, Denies numbness, Denies Sensory deficit (Neuro), Denies tingling and Denies weakness Psych Denies anxiety, Denies depression and Denies memory loss Endo Denies cold intolerance, Denies fatigue, Denies heat intolerance, Denies polydipsia and Denies polyuria Ralph/Lymph Denies easy bleeding and Denies easy bruising Aller/Immun Denies wheezing Physical exam (Primary Care) Vital Signs: Last Vital Signs Pulse 80 04/28/23 11:12 Resp 13 04/28/23 11:12 BP 128/72 04/28/23 11:12 Pulse Ox 100 04/28/23 11:12 Oxygen Delivery Method Room Air 04/28/23 11:12 BMI result Body Mass Index 25.7 Tobacco/Smoking Status: Tobacco use Status Tobacco use date assessed 04/28/23 04/28/23 11:24 Patient Tobacco Use Status Former Tobacco user 04/28/23 11:24 e-Cigarette/Vaping Use Never Used 04/28/23 11:24 PHQ-9: PHQ-9 Score PHQ-9: Total score 0 04/28/23 11:54 Depression Screening Interpretation: Negative Thrive Assessment: Date of Thrive Assessment Date Thrive assessed 04/28/23 04/28/23 11:24 Currently or been in a relationship where the following occur: no concerns reported Const General: no acute distress, well developed, alert and awake Nutritional Appearance: well nourished Orientation/consciousness: patient oriented x3 HENMT Head: Yes normocephalic and Yes atraumatic Ears: hearing grossly normal bilaterally and TM's normal bilaterally General nose exam: Normal external nose present and Normal nares present Mouth: Normal oral and palatal mucosa present and moist mucous membranes Teeth and gingiva: dentition normal Throat: Yes posterior oropharynx normal Eyes General: appearance normal, both eyes and all related structures Pupils: Equal, round and reactive pupils present and Pupil accommodation reflex normal EOM: EOMs intact bilaterally Neck Neck: Yes normal visual inspection, Yes no lymphadenopathy and Yes trachea midline Thyroid: Thyroid normal Carotids: no bruits Lymphatic: no lymphadenopathy noted Chest Chest palpation & inspection: normal inspection of the chest Resp Effort & Inspection: normal respiratory effort Auscultation: clear to auscultation bilaterally Cardio Rate: regular rate Rhythm: regular rhythm Heart sounds: S1 normal heart sound present, S2 normal heart sound present, no gallops, no murmurs and no rubs Bruits: no abdominal aortic bruits and no carotid bruits GI Palpation (GI): No Abdominal aortic bruit present, Soft to palpation, nontender, No hepatosplenomegaly present and No Rebound tenderness present Auscultation: normal bowel sounds General: Yes no CVA tenderness Back/Spine/Pelvis Back: no CVA tenderness Cervical Spine: cervical ROM normal and No Cervical spine tenderness Thoracic/Lumbar Spine: thoraco-lumbar ROM normal, No pain with thoraco-lumbar ROM, No thoracic spinal tenderness and No lumbar spinal tenderness Skin Lesions: no lesions Rashes: no rashes Trauma: no lacerations or abrasions Wounds: no wounds Nails: normal Neuro General: patient oriented x3 Cranial nerves: Yes Equal, round and reactive pupils present Cognition (Neuro): normal cognition Gait exam (Neuro): Normal gait present Motor exam (neuro): 5/5 motor strength present throughout Sensory Exam: No Sensory deficit (Neuro) Deep tendon reflexes (DTR's): Right patellar reflex intensity grade: 2+ and Left patellar reflex intensity grade: 2+ Extrem General: Yes normal to inspection and No edema Psych Appearance: grossly normal Affect: normal affect Attitude: cooperative Thought process: Normal thought process present Assessment and Plan Assessment & Plan (1) Adult general medical exam: Code(s): Z00.00 - Encounter for general adult medical examination without abnormal findings Plan: 63-year-old?female?presents?for?complete?physical?exam (2) Elevated fasting glucose: Code(s): R73.01 - Impaired fasting glucose Plan: Mildly?elevated?fasting?blood?sugar?and?we?can?follow-up?on?this?at?her?next?visit (3) Hyperlipidemia: Code(s): E78.5 - Hyperlipidemia, unspecified Plan: Lipids?are?well?controlled. Continue?atorvastatin (4) Breast cancer: Comment: left mastectomy January 05, 2022. [facility]. Code(s): C50.919 - Malignant neoplasm of unspecified site of unspecified female breast Plan: History?of?invasive?ductal?carcinoma?of?left?breast?and?left?breast?mastectomy.??Stable.??As?follow-up?mammogram?in?June.?? 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 Coding Level of Care Code Est Pt Level 3 (04599) Est Pt Prev Care 40-64y(33592) Diagnoses Adult general medical exam Z00.00 Elevated fasting glucose R73.01 Hyperlipidemia E78.5 Breast cancer C50.919 Screening for colon cancer Z12.11 Screening for cervical cancer Z12.4 Breast cancer screening by mammogram Z12.31 Additional Codes KANDACE-7 Assessment Billing - KANDACE-7 Assessment Tool: KANDACE-7 Assessment [id number] ([id number])
[2023-04-28 11:12] VITALS: BP 128/72; PULSE 80; RESP 13; O2SAT 100; BMI 25.7
== END 2023-04-28 12:18 | disposition home or self-care (01) ==
PROVIDERS: PCP Family Medicine; Visit Provider Family Medicine
DX: Z00.00 Encounter for general adult medical examination without abnormal findings (principal); R73.01 Impaired fasting glucose; E78.5 Hyperlipidemia, unspecified; C50.919 Malignant neoplasm of unspecified site of unspecified female breast; Z12.11 Encounter for screening for malignant neoplasm of colon; Z12.4 Encounter for screening for malignant neoplasm of cervix; Z12.31 Encounter for screening mammogram for malignant neoplasm of breast
CPT/HCPCS: 99396

== ENCOUNTER 2023-11-25 09:11 | Outpatient (AMB) | payer BC, SELFPAY ==
[2023-11-25 09:17] VITALS: BP 132/92; PULSE 81; TEMP 36.9; O2SAT 97; BMI 25.6
--- NOTE | 2023-11-25 09:17 | AM.OFFWIN_ITS ---
Intake Vital Signs 11/25/23 09:17 Height 5 ft 4 in Weight 149 lb BMI 25.6 BP 132/92 H Blood Pressure Location Rt brachial Position Sitting Pulse 81 Pulse Source Pulse Oximeter Temp 98.4 F Temp Source Oral Pulse Oximetry (%) 97 Oxygen Delivery Method Room Air Intake Visit Reasons: EP both eyes irritated/pussy Intake Note: Pt is here today c/o severe bilateral eye red,swollen and irritated with d/c Patient Tobacco Use Status: Former Tobacco user Allergies house dust Allergy (Mild, Verified 11/25/23 09:46) Nasal congestion Seasonal Allergies Allergy (Mild, Verified 11/25/23 09:46) watery, cough Medication List - Last Reconciled 11/25/23 by Eugenie Rosales, [facility]- alendronate 70 mg PO QWEEK atorvastatin 20 mg PO BEDTIME atorvastatin 20 mg PO BEDTIME 30 days calcium carbonate (Calcium 600) 600 mg PO DAILY [D-harshal PO DAILY] estradiol (Yuvafem) 10 mcg vaginal DAILY glucosamine-chondroitin 250-200 mg (Osteo Bi-Flex) 2 tabs PO DAILY lactobacillus combination no.8 (Adult Probiotic) 3,000 mmu cells PO DAILY mirabegron ER (Myrbetriq) 25 mg PO DAILY ti-gep-vvmez-calcium carb-K1 400 mcg-500 mg calcium-20 mcg (Women's 50 Plus Multivitamin) 1 tab PO DAILY omeprazole 20 mg PO DAILY psyllium husk (Fiber (psyllium husk)) 0.4 grams PO DAILY HPI HPI Comments History of Present Illness Details 63-year-old female here today with compl aints of red itchy eyes with purulent discharge that started last night. Reports that she was in her normal state of health until about 1 week ago when she developed diarrhea and a stuffy nose associated with fatigue. She did take a home COVID test x2 and this was negative. These symptoms have improved however she started with a red itchy eyes with purulent drainage last night. Affecting both eyes. She denies any fever, chills, visual disturbances, trauma to the eyes, headache. Plan Given periorbital erythema I will also treat with p.o. antibiotics. Z-Jose Roberto and polymyxin B Educated on reasons to return or seek additional care. This note is constructed using voice recognition software. While every effort has been made to ensure accuracy in loan services professional, still errors may have been included Sometimes, these errors may affect the content or meaning of the given sentence . PFSH Medical History Varicose vein of leg Breast cancer Hyperlipidemia Osteoporosis Surgical History Hx laparoscopic cholecystectomy Hx of varicose vein stripping H/O colonoscopy Hx of mastectomy History of open reduction and internal fixation (ORIF) procedure History of hysterectomy Family History (Updated 04/28/23 @ 11:20 by Jovanna Yousif CMA) Father Squamous cell carcinoma in situ Mother No problems noted. Sister No problems noted. Brother No problems noted. Brother No problems noted. Daughter No problems noted. Daughter No problems noted. 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 Current occupational exposures/hazards: No Sexual orientation: Unable to collect Gender identity: Unable to collect Cognitive needs: No Hearing needs: No Vision needs: No Physical Exam Vital Signs: Last Vital Signs Temp 98.4 F 11/25/23 09:17 Pulse 81 11/25/23 09:17 BP 132/92 H 11/25/23 09:17 Pulse Ox 97 11/25/23 09:17 Oxygen Delivery Method Room Air 11/25/23 09:17 BMI result Body Mass Index 25.6 Eyes Periorbital: periorbital findings abnormal bilateral periorbital erythema Eyelids: Yes eyelids normal Conjunctivae: conjunctival abnormal bilateral conjunctival injection diffuse and discharge purulent and diffuse Sclerae: scleral abnormal bilateral scleral injection diffuse Pupils: Equal, round and reactive pupils present and Pupil accommodation reflex normal EOM: EOMs intact bilaterally Direct Ophthalmoscopy: normal light reflex and no photophobia Neuro Cranial nerves: Yes Equal, round and reactive pupils present Assessment & Plan Assessment & Plan (1) Acute bacterial conjunctivitis of both eyes: Code(s): H10.33 - Unspecified acute conjunctivitis, bilateral Plan: . Plan . Medications: New polymyxin B sulf-trimethoprim 10,000 unit- 1 mg/mL APPLY TO BOTH EYES while awake; do not exceed 6 doses in 24 hours 1 drp ophthalmic (eye) QID 5 days 10 mL 0RF azithromycin For 250 mg dose pack: take 500 mg today (day 1), then 250 mg for 4 days (days 2-5) PO 5 days 6 tabs 0RF Patient Instructions: Put cold or warm wet cloths on your eye a few times a day if the eye hurts. Do not wear contact lenses or eye makeup until the pink eye is gone. Throw away any eye makeup you were using when you got pink eye. Clean your contacts and storage case. Wash bed linen after 24 hours of antibiotic eye drop use. Do not share eye drops. Use a clean towel to wash your face each day until symptoms are gone. This will help prevent recurrence. What is pink eye? [place] eye is a term people use to describe an infection or irritation of the eye. The medical term for pink eye is conjunctivitis. If you have pink eye, your eye (or eyes) might: ?Turn pink or red ?Weep or ooze a gooey liquid ?Become itchy or burn ?Get stuck shut, especially when you first wake up [place] eye can be caused by an infection, allergies, or an unknown irritation. Can you catch pink eye from someone else? Yes. When pink eye is caused by an infection, it can spread easily. Usually, people catch it from touching something that has been in contact with an infected person's eye. It can also be spread when an infected person touches someone else, and then that person touches their eye. If someone you know has pink eye, avoid touching their pillowcases, towels, or other personal items. When should I see a doctor or nurse? See your doctor or nurse if your eye hurts, or if you still have trouble seeing clearly after blinking. If you do not have these problems, but think you might have pink eye, your doctor or nurse might be able to give you advice over the phone. Can pink eye be treated? Most cases of pink eye go away on their own without treatment. But some types of pink eye can be treated. When pink eye is caused by infection, it is usually caused by a virus, so antibiotics will not help. Still, pink eye caused by a virus can last several days. ?[place] eye caused by an infection with bacteria can be treated with antibiotic eye drops, gel, or ointment. ?[place] eye caused by other problems can be treated with eye drops normally used to treat allergies. These drops will not cure the pink eye, but they can help with itchiness and irritation. When using eye drops for infection, do not touch your healthy eye after touching your infected eye. Also, do not touch the bottle or dropper directly onto 1 eye and then use it in the other. These things can cause the infection to spread from 1 eye to the other. If your eyelids feel swollen, it might also help to hold a cool wet cloth on the area. What if I wear contact lenses? If you wear contact lenses and you have symptoms of pink eye, it is really important to have a doctor look at your eyes. In people who wear contacts, the symptoms of pink eye can be caused by corneal abrasion. Corneal abrasion is a scratch on the eye and can be a serious problem. During treatment for eye infections, you might need to stop wearing your contacts for a short time. If your contacts are disposable, throw them away and use new ones. If your contacts are not disposable, you need to carefully clean them. You should also throw away your contact lens case and get a new one. When can I go back to work or school? If you have pink eye caused by an infection, remember that it can spread very easily. The best way to avoid spreading it is to stay away from other people until you no longer have symptoms. If this is not possible, wash your hands often (figure 1). It's also important to avoid touching your eyes and sharing items that could spread the infection. Schools and day cares usually have rules about when a child with pink eye can return. If a child has a bacterial infection, they will probably need to stay home until they have gotten antibiotic eye drops or ointment for 24 hours. Can pink eye be prevented? To keep from getting or spreading pink eye caused by an infection: ?Wash your hands often with soap and water. ?Try not to touch your eyes. ?Avoid sharing towels, bedding, or other personal items with a person who has pink eye. If your pink eye is caused by allergies, it might help to stay inside with the windows shut as much as possible during peak allergy seasons. What problems should I watch for? Call your doctor or nurse if: ?You have trouble seeing clearly after blinking. ?Your eye is still red or has drainage after 3 days. ?You have eye pain that is getting worse. Coding Level of Care Code Est Pt Level 3 (79776) Diagnoses Acute bacterial conjunctivitis of both eyes H10.33
== END 2023-11-25 09:56 | disposition home or self-care (01) ==
PROVIDERS: PCP Family Medicine; Visit Provider Nurse Practitioner Family
DX: H10.33 Unspecified acute conjunctivitis, bilateral (principal)
CPT/HCPCS: 99213

== ENCOUNTER 2024-01-12 14:38 | Outpatient (AMB) | payer BC, SELFPAY ==
--- NOTE | 2024-01-12 15:30 | MHC.PC.OV ---
Vital Signs 01/12/24 15:37 Height 5 ft 4 in Weight 152 lb 2 oz BMI 26.1 BP 110/66 Blood Pressure Location Rt brachial Position Sitting Respiration 12 Pulse 78 Pulse Source Pulse Oximeter Temp 96.5 F L Temp Source Tympanic Pulse Oximetry (%) 98 Oxygen Delivery Method Room Air Intake Visit Reasons: Re: FMLA paperwork Intake Note: FMLA paperwork Allergies house dust Allergy (Mild, Verified 01/12/24 15:33) Nasal congestion Seasonal Allergies Allergy (Mild, Verified 01/12/24 15:33) watery, cough Tobacco use date assessed: 04/28/23 Dental Screening Dental Screen Date: 04/28/23 HPI Re: FMLA paperwork HPI Details 63 y/o female presents today for FMLA paperwork. Has ongoing complaints of polyarthalgia/osteoarthritis. [facility] Medical History Varicose vein of leg Breast cancer Hyperlipidemia Osteoporosis Surgical History Hx laparoscopic cholecystectomy Hx of varicose vein stripping H/O colonoscopy Hx of mastectomy History of open reduction and internal fixation (ORIF) procedure History of hysterectomy Family History (Updated 04/28/23 @ 11:20 by Jovanna Yousif CMA) Father Squamous cell carcinoma in situ Mother No problems noted. Sister No problems noted. Brother No problems noted. Brother No problems noted. Daughter No problems noted. Daughter No problems noted. 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 How many drinks containing alcohol do you have on a typical day when you are drinking?: 1 or 2 3. How often do you have six or more drinks on one occasion?: Never Total Score: 0 KANDACE-7 AMB Questionnaire KANDACE-7 Date KANDACE - 7 assessed: 04/28/23 Source: Developed by Drs. Nacho Alvarado, Iza Coles, Xavier Calvin and colleagues, with an educational eliseo from [employer]. Review of Systems Const Denies chills, Denies fatigue, Denies fever(s), Denies headache(s) and Denies weakness ENT Denies dizziness and Denies headache(s) Card Denies dyspnea Resp Denies cough, Denies dyspnea, Denies wheezing and Denies other (shortness of breath) Musc Denies numbness and Denies tingling Neuro Denies dizziness, Denies headache(s), Denies numbness, Denies tingling and Denies weakness Psych Denies anxiety and Denies depression Endo Denies fatigue Aller/Immun Denies wheezing Physical exam (Primary Care) Vital Signs: Last Vital Signs Temp 96.5 F L 01/12/24 15:37 Pulse 78 01/12/24 15:37 Resp 12 01/12/24 15:37 BP 110/66 01/12/24 15:37 Pulse Ox 98 01/12/24 15:37 Oxygen Delivery Method Room Air 01/12/24 15:37 BMI result Body Mass Index 26.1 Tobacco/Smoking Status: Tobacco use Status Tobacco use date assessed 04/28/23 01/12/24 15:40 Patient Tobacco Use Status Former Tobacco user 01/12/24 15:40 e-Cigarette/Vaping Use Never Used 01/12/24 15:40 Thrive Assessment: Date of Thrive Assessment Date Thrive assessed 04/28/23 01/12/24 15:40 Const General: well developed; No acute distress Nutritional Appearance: well nourished Orientation/consciousness: patient oriented x3 HENMT Head: Yes normocephalic and Yes atraumatic Eyes General: appearance normal, both eyes and all related structures Pupils: Equal, round and reactive pupils present EOM: EOMs intact bilaterally Resp Effort & Inspection: normal respiratory effort Auscultation: clear to auscultation bilaterally Cardio Rate: regular rate Rhythm: regular rhythm Heart sounds: S1 normal heart sound present, S2 normal heart sound present, no gallops, no murmurs and no rubs Neuro General: patient oriented x3 and gait normal Cranial nerves: Yes Equal, round and reactive pupils present Psych Affect: normal affect Assessment and Plan Assessment & Plan (1) Polyarthralgia: Code(s): M25.50 - Pain in unspecified joint Plan: Polyarthralgia?with severe?flare-ups?of?osteoarthritis Filled?out?paperwork?for?intermittent?leave.??Patient?requires leave up?to?4?times?a?year?for?3-4?days?per?episode. She?has?referrals?to?Orthopedics,?Physical?therapy?and?Podiatry Paperwork?completed?today (2) Osteoarthritis: Code(s): M19.90 - Unspecified osteoarthritis, unspecified site Plan: As?above Coding Level of Care Code Est Pt Level 3 (32013) Diagnoses Polyarthralgia M25.50 Osteoarthritis M19.90
[2024-01-12 15:37] VITALS: BP 110/66; PULSE 78; RESP 12; TEMP 35.8; O2SAT 98; BMI 26.1
== END 2024-01-12 16:38 | disposition home or self-care (01) ==
PROVIDERS: PCP Family Medicine; Visit Provider Family Medicine
DX: M25.50 Pain in unspecified joint (principal); M19.90 Unspecified osteoarthritis, unspecified site
CPT/HCPCS: 99213

== ENCOUNTER 2024-04-16 07:55 | Outpatient (REF) | payer BC, SELFPAY ==
[2024-04-16 10:18] LABS: MANUAL DIFF FLAG NO
[2024-04-16 10:28] LABS: Basophils Absolute Auto 0.1 X10*3/uL (0.0-0.2); Eosinophils Absolute Auto 0.2 X10*3/uL (0.0-0.4); Eosinophils Percent Auto 2.7 % (0-4); Hematocrit 41.2 % (37.0-47.0); Hemoglobin 13.7 g/dl (12.0-16.0); Imm Gran Abs Auto 0.01 X10*3/uL (0.00-0.03); Imm Gran Pct Auto 0.2 % (0.0-0.4); Lymphocytes Absolute Auto 1.7 X10*3/uL (1.2-4.9); Lymphocytes Percent Auto 27.9 % (20-40); Mean Corpuscular HGB Conc 33.3 g/dl (31.0-35.0); Mean Corpuscular Hemoglobin 31.6 pg (27.0-33.0); Mean Corpuscular Volume 95.2 fL (80.0-98.0); Mean Platelet Volume 10.3 fL (9.4-12.3); Monocytes Absolute Auto 0.5 X10*3/uL (0.1-1.2); Monocytes Percent Auto 7.8 % (2-11); Neutrophils Absolute Auto 3.6 x10*3/uL (2.0-8.3); Neutrophils Percent Auto 60.4 % (45-73); Platelet Count 254 X10*3/uL (160-400); Red Blood Count 4.33 X10*6/uL (4.20-5.50); Red Cell Distribution Width 12.6 % (11.0-16.0)
[2024-04-16 10:43] LABS: Appearance Urine Clear; Color Urine Yellow; Glucose Urine UA Negative (Negative); Leukocyte Esterase Urine Negative (Negative); Nitrite Urine Negative (Negative); PH 7.5 (5.0-9.0); Urine Blood Negative (Negative); Urine Ketones Negative (Negative); Urine Protein Negative (Neg-Trace)
[2024-04-16 10:59] LABS: Alanine Aminotransferase 38 U/L (0-31); Albumin Level 4.3 g/dL (3.5-5.0); Alkaline Phosphatase 66 U/L (39-117); Anion Gap 16 (12-20); Aspartate Amino Transferase 35 U/L (5-31); Bilirubin Total 0.7 mg/dL (0.0-1.0); Blood Urea Nitrogen 14 mg/dL (9-16); Calcium 9.1 mg/dL (8.4-10.2); Carbon Dioxide 27 mmol/L (22-29); Chloride 103 mmol/L (96-108); Cholesterol 154 mg/dL (<200); Estimated Glomerular Filt Rate > 60; Glucose Fasting 103 mg/dL (60-99); HDL Cholesterol 56 mg/dL (>40); LDL Cholesterol Calculated 75 mg/dL (<100); Potassium 4.3 mmol/L (3.3-5.1); Sodium 142 mmol/L (135-145); Triglycerides 115 mg/dL (<150)
[2024-04-16 11:03] LABS: TSH reflex Free T4 1.29 uIU/mL (0.32-4.0)
[2024-04-16 11:52] LABS: Creatinine Urine 135.22 mg/dL; Microalbum/Creatinine Ratio Ur 6.6 ug/mg cr (<30)
--- OUTSIDE RECORDS SUMMARY | 2024-04-17 18:40 | XMS_ITS | Continuity of Care Document ---
Author Organization [facility] Address [address] [place] [address] [address] [place] [address] Phone Care Team Providers Care Tool Room Machinist Name Role Phone Charli HART FACS RVT Glen HAWKINS Unavailable Unavailable Allergies, Adverse Reactions, Alerts Substance Reaction Status Criticality No Known Allergies Active No Inform ation Medications Medication Instructions Dosage Effective Dates (start - stop) Status Comments ATORVASTATIN CALCIUM (unknown strength) Not Available - Active MYRBETRIQ (unknown strength) Not Available - Active OSTEO BI-FLEX (unknown strength) Not Available - Active CENTRUM SILVER (unknown strength) Not Available - Active CULTURELLE (unknown strength) Not Available - Active Procedures Procedure Date Office/Outpt E&M Established 15 Mins Jan Duplex Scan-extrem Veins; Comp Office/Oupt E&M New Pt 30 Mins Advance Directives Directive Yes / No Effective Date File Name No Information Encounters Encounter Description Practice Location Reason(s) For Visit Diagnoses Date Provider Providers Copied on Encounter [facility], [address] [facility] [address], [place], [id number], [place] tel:[phone] [facility] No Information 3 Charli HART FACS RVT ROSS Conner. [address] [facility], [facility] [address], [place], [address], [place]. tel:[phone] Referring Provider: Bonilla Gomez D.P.M., [address] [place] [address], [address] . tel:[phone] Office/Outpt E&M Established 15 Mins [facility], [address] [place] [address] [address] [address], [id number], tel:[phone] CV[facility] - [facility] Chronic venous htn w oth comp of bilateral low extrm Sep-0 3 Charli Conner. [address] [place] [address], [place], [address], [place]. [phone] Referring Provider: Bonilla Gomez D.P.M., [address] [place] [address], [address] . tel:[phone] [facility], [address] [place] [address] [address], [id number], [place] tel:[phone] CVR - [facility] Chronic venous htn w oth comp of bilateral low extrm Dec- 3 Charli Conner. [facility] [address], [place], [address], [place]. tel:[phone] Referring Provider: Bonilla Gomez D.P.M., [address] [place] [address], [address] . tel:[phone] Office/Oupt E&M New Pt 30 Mins [facility], [address] [place] [address] [address], [id number], [place] tel:[phone] CVR - [facility] Chronic venous htn w oth comp of bilateral low extrmLocalized edema 3 Charli Conner. [facility] [address], [place], [address], [place]. tel:[phone] Referring Provider: Bonilla Gomez D.P.M., [facility] [place], [address] . tel:[phone] Family History Family Member Type Diagnosis Age At Onset No Information Payers Payer name Insurance type Covered alliance party ID Authorisaela tiyvon(s) [employer] [facility] [id number] Social History Type Description Quantity Date Captured Comments Alcohol Use Details Unknown Caffeine Use Details Unknown Tobacco Use Status No Information Smoking Status No Information Sex Female Chief Complaint And Reason For Visit No Information Reason For Referral Reason For Referral No Information Plan Of Treatment Date Type Action Status Goal Diet education completed Goal Diet education completed Referral Ordered: Bonilla Gomez D.P.M. timeframe: 3 Months (related to Essential (primary) hypertension) ordered Referral Ordered: Weight management: Referral to physician timeframe: 3 Months (related to Body mass index (BMI) 25.0-25.9, adult) ordered History Of Present Illness Encounter Date Complaint History Of Prese nt Illness No Information Functional Status Date Functional Assessmen t No Information Instructions Date Instruction Additional Infor mation Diet education Related to Essen tial (primary) hypertension Exercise education Related to Es sential (primary) hypertension Lifestyle education Related to E ssential (primary) hypertension Diet education Related to Body mass index (BMI) 25.0-25.9, adult Giving Encouragement to exercise Related to Body mass index (BMI) 25.0-25.9, adult Lifestyle education Related to B brittney mass index (BMI) 25.0-25.9, adult Compression stocking usage as conservative measure Related to Chronic venous htn w oth comp of bilateral low extrm Patient education booklet given Related to Chronic venous htn w oth comp of bilateral low extrm Assessments Type Assessment Date No Information Patient Care Teams Name Effective Dates (start - stop) Status Members No Information
== END 2024-04-16 07:56 | disposition home or self-care (01) ==
LOC: HO.HMGCLDS 07:55
PROVIDERS: PCP Family Medicine; Visit Provider Family Medicine
DX: Z00.00 Encounter for general adult medical examination without abnormal findings (principal); I10 Essential (primary) hypertension
CPT/HCPCS: 36415; 80053; 80061; 81003; 82043; 82570; 84443; 85025

== ENCOUNTER 2024-05-06 08:36 | Outpatient (AMB) | payer BC, SELFPAY ==
--- NOTE | 2024-05-06 08:53 | MHC.PC.OV ---
Vital Signs 05/06/24 09:01 Height 5 ft 4 in Weight 154 lb 4 oz BMI 26.5 BP 112/78 Blood Pressure Location Rt brachial Position Sitting Respiration 14 Pulse 86 Pulse Source Palpation Intake Visit Reasons: CPE with f/u labs and health maintenance Intake Note: CPE Is last menstrual period known: No Post menopausal: No (HYSTERECTOMY ) Patient : No Allergies house dust Allergy (Mild, Verified 05/06/24 08:57) Nasal congestion Seasonal Allergies Allergy (Mild, Verified 05/06/24 08:57) watery, cough Medication List - Last Reconciled 05/06/24 by Bonilla Gomez MD alendronate 70 mg PO QWEEK atorvastatin 20 mg PO BEDTIME calcium carbonate (Calcium 600) 600 mg PO DAILY [D-harshal PO DAILY] estradiol (Yuvafem) 10 mcg vaginal DAILY glucosamine-chondroitin 250-200 mg (Osteo Bi-Flex) 2 tabs PO DAILY lactobacillus combination no.8 (Adult Probiotic) 3,000 mmu cells PO DAILY mirabegron ER (Myrbetriq) 25 mg PO DAILY ov-evx-vadur-calcium carb-K1 400 mcg-500 mg calcium-20 mcg (Women's 50 Plus Multivitamin) 1 tab PO DAILY omeprazole 20 mg PO DAILY psyllium husk (Fiber (psyllium husk)) 0.4 grams PO DAILY Tobacco use date assessed: 05/06/24 Dental Screening Dental Screen Date: 05/06/24 Did you have a dental visit in the last 12 months?: Yes Did you have a dental problem in the last 6 months where you did not have access to dental care?: No Was dental information given to patient?: Patient has dentist [facility] Medical History Varicose vein of leg Breast cancer Hyperlipidemia Osteoporosis Surgical History Hx laparoscopic cholecystectomy Hx of varicose vein stripping H/O colonoscopy Hx of mastectomy History of open reduction and internal fixation (ORIF) procedure History of hysterectomy Family History Father Squamous cell carcinoma in situ Mother No problems noted. Sister No problems noted. Brother No problems noted. Brother No problems noted. Daughter No problems noted. Daughter No problems noted. 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 24679 - PHQ-9 Billing: Patient declined-do not bill Source: Developed by Drs. Nacho Alvarado, Iza Coles, Xavier Calvin and colleagues, with an educational eliseo from [employer]. Thrive Questionnaire Date Thrive assessed: 05/06/24 I am a: Patient What is your living situation today?: I have a steady place to live Within the past 12 months, did the food you bought not last and you didn't have the money to get more?: Never true Within the past 12 months, did you worry whether your food would run out before you got money to buy more?: Never true Do you have trouble paying for medicines?: No Do you have trouble getting transportation to medical appointments?: No Do you have trouble paying your heating and electricity bill?: No Do you have trouble taking care of your child, family member or friend?: No Do you have trouble with day-to-day activities such as bathing, preparing meals, shopping, managing finances, etc.?: No Are you currently unemployed and looking for a job?: No Are you interested in more education?: No Please select the resources that you would like help with: None Currently or been in a relationship where the following occur: No concerns reported THRIVE Score: 0 AUDIT C Alcohol Use Questionnaire (AUDIT-C) 1. How often do you have a drink containing alcohol?: 2-4 times a month 2. How many drinks containing alcohol do you have on a typical day when you are drinking?: 1 or 2 3. How often do you have six or more drinks on one occasion?: Never Total Score: 2 KANDACE-7 AMB Questionnaire KANDACE-7 Date KANDACE - 7 assessed: 05/06/24 Feeling nervous, anxious, or on edge: 2 = More than half the days Not being able to stop or control worryin = Several days Worrying too much about different things: 2 = More than half the days Trouble relaxin = More than half the days Being so restless that it is hard to sit still: 0 = Not at all Becoming easily annoyed or irritable: 1 = Several days Feeling afraid as if something awful might happen: 1 = Several days Total KANDACE-7 score (0-4 normal; 5-9 mild; 10-14 moderate; 15-21 severe): 9 Source: Developed by Drs. Nacho Alvarado, Iza Coles, Xavier Calvin and colleagues, with an educational eliseo from [employer]. KANDACE-7 Assessment Billing KANDACE-7 Assessment Tool: KANDACE-7 Assessment 66353 Physical exam (Primary Care) Vital Signs: Last Vital Signs Pulse 86 05/06/24 09:01 Resp 14 05/06/24 09:01 BP 112/78 05/06/24 09:01 BMI result Body Mass Index 26.5 Tobacco/Smoking Status: Tobacco use Status Tobacco use date assessed 05/06/24 05/06/24 09:05 Patient Tobacco Use Status Former Tobacco user 05/06/24 08:54 e-Cigarette/Vaping Use Never Used 05/06/24 08:54 Thrive Assessment: Date of Thrive Assessment Date Thrive assessed 05/06/24 05/06/24 09:05 Currently or been in a relationship where the following occur: No concerns reported Coding Level of Care Code Est Pt Prev Care 40-64y(42128) Diagnoses Adult general medical exam Z00.00 Pre-diabetes R73.03 Elevated liver enzymes R74.8 Hyperlipidemia E78.5 Breast cancer screening by mammogram Z12.31 Screening for cervical cancer Z12.4 Osteoporosis M81.0 Additional Codes KANDACE-7 Assessment Billing - KANDACE-7 Assessment Tool: KANDACE-7 Assessment 21702 ([id number]) Assessment & Plan Assessment & Plan (1) Adult general medical exam: Code(s): Z00.00 - Encounter for general adult medical examination without abnormal findings Category: Medical Plan: 64-year-old?female?presents?for?complete?physical?exam Encouraged?healthy?diet?with?active?lifestyle?and?plenty?of?exercise (2) Pre-diabetes: Code(s): R73.03 - Prediabetes Category: Medical Plan: A1c?6.3%; pre?diabetes Patient?has?a?history?of?gestational?diabetes?and?family?history?of?diabetes. Encouraged?a?diet?lower?in?sugars?and?starches Encouraged?weight?loss (3) Elevated liver enzymes: Code(s): R74.8 - Abnormal levels of other serum enzymes Category: Medical Plan: Mildly?elevated?liver?enzymes. Encouraged?weight?loss?good?hydration. Will?recheck?3?months. Of?note,?patient?is?on?a?statin?but?lab?work?subsequent?to?her?starting?this?medication?was?still?okay?until?recently. Likely?due?to?weight?gain?and?dehydration?rather?statin?medication. (4) Hyperlipidemia: Code(s): E78.5 - Hyperlipidemia, unspecified Category: Medical Plan: Lipids?are?well?controlled Continue?atorvastatin (5) Breast cancer screening by mammogram: Code(s): Z12.31 - Encounter for screening mammogram for malignant neoplasm of breast Category: Medical Plan: History?left?breast?mastectomy Last?mammogram?in?February?was?negative?for?malignancy Will?continue?annual?screening (6) Screening for cervical cancer: Code(s): Z12.4 - Encounter for screening for malignant neoplasm of cervix Category: Medical Plan: History?of?hysterectomy?but?patient?says?she?still?has?her?cervix?gets?Pap?smears?with?Dr. Bonilla Lawson Follow-up?international banker?as?recommended (7) Osteoporosis: Code(s): M81.0 - Age-related osteoporosis without current pathological fracture Category: Medical Plan: History?of?osteoporosis?and?patient?is?taking?alendronate She?will?be?due?for?repeat?bone?density?test?next?year Her?international banker?requested?bone?density?test?report?we?will?fax?it?to?him Orders: Orders Comprehensive [place]. Panel Fast Today R74.8 - Abnormal levels of other serum enzymes, Z00.00 - Encounter for general adult medical examination without abnormal findings Hemoglobin A1c Today R73.01 - Impaired fasting glucose, R73.03 - Prediabetes
[2024-05-06 09:01] VITALS: BP 112/78; PULSE 86; RESP 14; BMI 26.5
== END 2024-05-06 09:37 | disposition home or self-care (01) ==
PROVIDERS: PCP Family Medicine; Visit Provider Family Medicine
DX: Z00.00 Encounter for general adult medical examination without abnormal findings (principal); R73.03 Prediabetes; R74.8 Abnormal levels of other serum enzymes; E78.5 Hyperlipidemia, unspecified; Z12.31 Encounter for screening mammogram for malignant neoplasm of breast; Z12.4 Encounter for screening for malignant neoplasm of cervix; M81.0 Age-related osteoporosis without current pathological fracture

== ENCOUNTER → 2024-05-06 08:36 | Outpatient (BNVA) | payer BC, SELFPAY | PROVIDERS: PCP Family Medicine; Visit Provider Family Medicine | DX: Z00.00 Encounter for general adult medical examination without abnormal findings (principal); R73.03 Prediabetes; R74.8 Abnormal levels of other serum enzymes; E78.5 Hyperlipidemia, unspecified; M81.0 Age-related osteoporosis without current pathological fracture; Z79.899 Other long term (current) drug therapy | CPT/HCPCS: 83036; 96127 ==

== ENCOUNTER 2024-06-27 11:10 | Outpatient (AMB) | payer BC, SELFPAY ==
--- NOTE | 2024-06-27 11:09 | A.OFFVIS_ITS ---
Vital Signs 3 06/27/24 11:16 Height 5 ft 4 in Weight 155 lb BMI 26.6 BP 155/79 H Blood Pressure Location Lt brachial Position Sitting Pulse 80 Intake Visit Reasons: Pain under right rib/hernia? Intake Note: Patient is seen in office for pain under the right rib, question possible hernia. Pt c/o: pain for several months on the right side of the abdomen, unsure if its due to starting to workout, does not feel a lump, pain usually half hr after meals seen Dr Nuñez Collar Stay Fuser Tender Required: No Accompanied by: Self / Same As Patient Allergies house dust Allergy (Mild, Verified 06/27/24 11:16) Nasal congestion Seasonal Allergies Allergy (Mild, Verified 06/27/24 11:16) watery, cough Medication List - Last Reconciled 06/27/24 by Wilmer Toribio MD alendronate 70 mg PO QWEEK atorvastatin 20 mg PO BEDTIME calcium carbonate (Calcium 600) 600 mg PO DAILY [D-harshal PO DAILY] estradiol (Yuvafem) 10 mcg vaginal DAILY glucosamine-chondroitin 250-200 mg (Osteo Bi-Flex) 2 tabs PO DAILY lactobacillus combination no.8 (Adult Probiotic) 3,000 mmu cells PO DAILY mirabegron ER (Myrbetriq) 25 mg PO DAILY ao-glm-ynvzu-calcium carb-K1 400 mcg-500 mg calcium-20 mcg (Women's 50 Plus Multivitamin) 1 tab PO DAILY omeprazole 20 mg PO DAILY psyllium husk (Fiber (psyllium husk)) 0.4 grams PO DAILY HPI Comments Details: 64-year-old female patient presenting for evaluation of pain in the right upper quadrant. Pain is intermittent in the nature but seems to be related to activity. She denies any palpable mass, nausea, vomiting, diarrhea, or other symptoms. She is status post laparoscopic cholecystectomy in 2016. She also has a history of breast cancer. She is concerned that this could be related to her cancer. [facility] Medical History Varicose vein of leg Breast cancer Hyperlipidemia Osteoporosis Surgical History Hx laparoscopic cholecystectomy Hx of varicose vein stripping H/O colonoscopy Hx of mastectomy History of open reduction and internal fixation (ORIF) procedure History of hysterectomy Family History Father Squamous cell carcinoma in situ Mother No problems noted. Sister No problems noted. Brother No problems noted. Brother No problems noted. Daughter No problems noted. Daughter No problems noted. 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 Current occupational exposures/hazards: No Sexual orientation: Unable to collect Gender identity: Unable to collect Cognitive needs: No Hearing needs: No Vision needs: No Review of Systems Const All systems reviewed & are unremarkable except as noted in HPI and below Physical Exam Vital Signs: Last Vital Signs Pulse 80 06/27/24 11:16 BP 155/79 H 06/27/24 11:16 BMI result Body Mass Index 26.6 Const General: cooperative and no acute distress Nutritional Appearance: well nourished Orientation/consciousness: patient oriented x3 Limitations: no limitations HEENT Head: Yes normocephalic and Yes atraumatic Ears: hearing grossly normal bilaterally Resp Effort & Inspection: normal respiratory effort, no audible wheezes, no cough and no respiratory distress Cardio Jugular venous distension: no JVD GI Other: Well-healed trocar incisions noted. Tenderness is noted in the more medial right upper quadrant trocar incision. The tenderness increases with Valsalva maneuvers. No palpable hernias appreciated however. No other trocar incisions are tender. Inspection: Yes normal to inspection Abdomen image: 2 1. Site of tender trocar incision, right subcostal/medial incision Skin Other: Warm, dry, no rash Neuro General: patient oriented x3 Extrem General: Yes no clubbing, cyanosis or edema Assessment & Plan Assessment & Plan (1) Right upper quadrant abdominal pain: Code(s): R10.11 - Right upper quadrant pain Category: Medical Plan 64-year-old female patient presenting with pain in the right upper quadrant which seems to be related to her previous surgical incision. No hernia is appreciated on examination but she certainly is tender with Valsalva maneuvers. I recommended further evaluation with an ultrasound of this region to evaluate for an occult hernia. She will return following the study to review the results and discuss treatment options. Orders: Orders 2 US abdomen limited Today R10.11 - Right upper quadrant pain Coding Level of Care Code New Pt Level 4 (87659) Diagnoses Right upper quadrant abdominal pain R10.11
[2024-06-27 11:16] VITALS: BP 155/79; PULSE 80; BMI 26.6
--- OUTSIDE RECORDS SUMMARY | 2024-06-27 12:31 | XMS_ITS ---
Author Organization [facility] Address [address] [facility] [place] [address] Care Team Providers Care Internal Medicine Specialist Name Role Phone Jason HART, Bonilla Primary Care Provider Janay Burgos Unavailable [phone] Encounters Encounter Location Date Provider Diagnosis [address] [address] 03/08/2024 Janay Gonzales Plan Of Treatment No Information Progress Notes * Liz BLACKWOOD MDOB:1960 (64 yo F)Acc No.[id number]:03/08/2024 Progress Note Patient:Liz KITCHEN Provider:?Janay Gonzales DPM :1960???Age:64 Y???Sex:Female D ate:03/08/2024 Address:[address] , [id number] Pcp:Bonilla Gomez MD Subjective: * Chief Complaints: * ??? * Medical History:? Objective: * Vitals:? Assessment: Plan: * Treatment: * Images: * The named appointment provid er may or may not be the originator of this progress note, and it is not deemed complete until electronically signed by the appointment provider. Sign off status: Pending * Provider:?Janay Gonzales DPM Date:?2023 Generated for Gabriela craft/Ankita/eTransmitting on:?06/27/2024 12:31 PM EST
--- OUTSIDE RECORDS SUMMARY | 2024-06-27 12:31 | XMS_ITS | Encounter Summary ---
Author Organization [facility] Address [address] [place] [address] Care Team Providers Care Office Messenger Name Role Phone Bonilla Lawson MD Primary Care Provider [phone] Encounter Details Date Type Department Care Team (Latest Contact Info) Description 03/26/2024 Lab Requisition [facility] - Main Lab [address] [place] [address] Bonilla Lawson MD [address] [id number] Encounter for gynecological examination (general) (routine) without abnormal findings Social History Tobacco Use Types Packs/Day Years Used Date Smoking Tobacco: Never Assessed Comments Unknown Sex and Gender Information Value Date Recorded Sex Assigned at Not on file Legal Sex Female 9:49 PM EST Gender Identity Not on file Sexual Orientation Not on file documented as of this encounter Plan of Treatment Not on file documented as of this encounter Procedures Procedure Name Priority Date/Time Associated Diagnosis Comments PAP SMEAR Routine 03/25/2024 12:00 AM EST Encounter for gynecological examination (general) (routine) without abnormal findings documented in this encounter Results * Pap smear (03/25/2024 12:00 AM EST) Interpretation Negative for intraepithelial lesion or malignancy 03/27/2024 1:59 PM EST [facility] General Categorization Negative 03/27/2024 1:59 PM EST [facility] Specimen Adequacy Satisfactory for evaluation 03/27/2024 1:59 PM EST [facility] Pap Methodology Liquid Based Pap Test 03/27/2024 1:59 PM EST [facility] Disclaimer The Pap test is a screening test which carries an inherent false negative rate. These test results should be correlated with the patient's clinical findings and history. This Pap test was processed using an automated screening system. Technical cytopathology services provided by [facility], at [address] [place] [address] (CLIA # [id number]/Leila Daly MD, Information Technology Assistant.) 03/27/2024 1:59 PM [facility] Console Pap Interpretation Reported 03/27/2024 1:59 PM [facility] Brushing/Spatula Vaginal structure / Unknown 03/25/2024 03/26/2024 8:22 AM EST us Bonilla Lawson MD LAB CYTOLOGY ORDERABLES Final Result [facility] [address] [place] [address], documented in this encounter Visit Diagnoses Diagnosis Encounter for gynecological examination (general) (routine) without abnormal findings documented in this encounter Care Teams Office Messenger Relationship Specialty Start Date End Date Bonilla Lawson MD [address] [address] PCP - General Obstetrics and Gynecology 05/30/24 documented as of this encounter
--- OUTSIDE RECORDS SUMMARY | 2024-06-27 12:31 | XMS_ITS | Continuity of Care Document ---
Author Organization [facility] Address [address] [place] [address] [address] [place] [address] Phone Care Team Providers Care Oak Tanner Name Role Phone Charli HART FACS RVT [...] Providers Copied on Encounter [facility], [address] [facility] [address], [place], [id number], [place] tel:[phone] [facility] No Information 3 Charli HART FACS RVT ROSS Conner. [address] [facility], [facility] [address], [place], [address], [place]. tel:[phone] Referring Provider: Bonilla Gomez D.P.M., [address] [place] [address], [address] . tel:[phone] Office/Outpt E&M Established 15 Mins [facility], [address] [place] [address] Dr Ricci [address] [address], [id number], tel:[phone] [facility] - [facility] Chronic venous htn w oth comp of bilateral low extrm Sep-0 3 Charli Conner. [address] [place] [address], [place], [address], [place]. [phone] Referring Provider: Bonilla Gomez D.P.M., [address] [place] [address], [address] . tel:[phone] [facility], [address] [place] [address] Dr Ricci [address], [id number], [place] tel:[phone] [facility] - [facility] Chronic venous htn w oth comp of bilateral low extrm Dec- 3 Charli Conner. [facility] [address], [place], [address], [place]. tel:[phone] Referring Provider: Bonilla Gomez D.P.M., [address] [place] [address], [id number] . tel:[phone] Office/Oupt E&M New Pt 30 Mins [facility], [address] [place] [address] Dr Ricci [address], [id number], [place] tel:[phone] [facility] - [facility] Chronic venous htn w oth comp of bilateral low extrmLocalized edema 3 Charli Conner. [facility] [address], [place], [address], [place]. tel:[phone] Referring Provider: Bonilla Gomez D.P.M., [facility] [place], [address] . tel:[phone] Family History Family Member Type Diagnosis Age At Onset No Information Payers Payer name Insurance type Covered constitution party ID Authorisaela tiyvon(s) BCBS [facility] [id number] Social History Type Description Quantity Date Captured [...]
--- OUTSIDE RECORDS SUMMARY | 2024-06-27 12:31 | XMS_ITS | Patient Health Record ---
[facility] Address [address] [place] [address] Care Team Providers Care Energy Conservation Engineer Name Role Phone Jason HART, Bonilla Primary Care Provider Janay Burgos Unavailable [phone] Allergies Allergen (clinical drug ingredient) Drug/Non Drug Allergy documented on EMR Reaction Allergy Type Onset Date Status Keflex hives Drug Allergy Active Results Component Value Reference Range Notes X ray : Foot, left 3V Reviewed date:12/07/2023 03:35:47 PM Interpretation:See Examination above Performing Lab: Notes/Report: See Examination above Reason For Referral No Information Medications Medication SIG (Take, Route, Frequency, Duration) Notes Start Date End Date Status Probiotic Active Glucosamine Pro Joint plus Act marcella Calcium 600 MG 1 tablet with meals Orally Twice a day Active Centrum Women Active Osteo Bi-Flex Adv Double St Active Omeprazole Not-Takin g Tylenol Arthritis Pain Active Mirabegron ER 25 MG 1 tablet Orally Once a day Active Atorvastatin Calcium 20 MG/5ML 5 mL Orally Once a day Activ e Work Note . . . . for . 10/10/2011 Not-T aking Alendronate Sodium 70 MG 1 tablet 30 min utes before the first food, beverage or medicine of the day dissolved in 4 ounces of water Orally Active Yuvafem Active Fiber Active Osteo Bi-Flex Joint Shield Active Immunizations Vaccine Route Administration Date Status Comme nts COVID-19 Moderna Vaccine Unknown 01/08/2021 Administere d 1st shot 07/01/2020 Social History Tobacco Use: Social History Observation Description Date Details (start date - stop date) Former Smoker NA - NA Tobacco Use/Smoking Question Answer Notes Are you a: former smoker Additional Findings: Tobacco Non-User Current no n-smoker Alcohol Screen Question Answer Notes Did you have a drink containing alcohol in the p ast year? Yes Points 0 Interpretation Negative Tobacco use other than smoking: Question Answer Notes Are you an other tobacco user? 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 Vital Signs Height 5ft4in in 12/07/2023 Weight 150 lbs 12/07/2023 BMI 25.74 kg/m2 12/07/2023 Procedures Procedure Date Ordered Date Performed Result Body Sit e 20372-Tklu Destruction, 1-14 12/07/2023 N/A Encounters Encounter Location Date Provider Diagnosis [address] [address] 12/07/2023 Janay Black Metatarsalgia, left foot M77.42 ; Primary osteoarthritis, left ankle and foot M19.072 ; Right foot pain M79.671 ; Plantar wart B07.0 ; Left foot pain M79.672 and Hypertrophy of bone M89.[address] [facility] [address] 10/04/2023 [facility] [address] 12/07/2023 Janay Black [facility] [address] 01/12/2024 Janay Black [address] [address] 03/07/2024 Janay Black Assessments Encounter Date Diagnosis (ICD Code) Assessment Notes Treatment Notes Treatment Clinical Notes Section Notes 12/07/2023 Primary osteoarthritis, left ankle and foot (ICD-10 - M19.072) 12/07/2023 Metatarsalgia, left foot (ICD-10 - M77.42) Rx - refurbishe orthotics - add met pads and offload 4th left 12/07/2023 Right foot pain (ICD-10 - M79.671) 12/07/2023 Plantar wart (ICD-10 - B07.0) 12/07/2023 Left foot pain (ICD-10 - M79.672) 12/07/2023 Hypertrophy of bone (ICD-10 - M89.30) Plan Of Treatment Pending Test Test Name Order Date 04366-Ppup Destruction, 1-14 12/07/2023 51868-Tuliwzae Plate 01/28/2019 17850-KMN 09/19/2011 24017-HKQ 10/10/2011 04160-ZWS 10/31/2011 48073- Debride <25 sq cm 02/14/2019 79536- Debride <25 sq cm 10/31/2011 67420-MBVSKVK SKIN/TISSUE 10/31/2011 21044-UJFEZUQ SKIN/TISSUE 10/10/2011 Insurance Providers Payer Name Payer Address Payer Phone Subscriber Number Group Number Insured Name Patient Relationship to Insured Coverage Start Date Coverage End Date [facility] [id number] [place] [address] [id number] Liz Barbosa Self - patient is the insured Medical (General) History Medical History History ICD Code broken bones chicken pox measles mumps gestational diabetes Arthritis Back,Hip,and Knee pain Gall bladder problems Psoriasis/eczema Surgical History Surgery Date(Month/Year) liposuction 2010 Hysterectomy 06/2015 Gall bladder 2014 Hospitalization History Reason Date(Month/Year) [facility]- [place] [facility]
--- OUTSIDE RECORDS SUMMARY | 2024-06-27 12:31 | XMS_ITS ---
Author Organization [facility] Address [address] [facility] [place] [address] Care Team Providers Care Rn Referral Name Role Phone Jason HART, Bonilla Primary Care Provider Janay Burgos Unavailable [phone] Encounters Encounter Location Date Provider Diagnosis [address] [address] 03/20/2024 Janay Gonzales Plan Of Treatment No Information Progress Notes * Liz BLACKWOOD MDOB:1960 (64 yo F)Acc No.[id number]:03/20/2024 Progress Note Patient:Liz KITCHEN Provider:?Janay Gonzales DPM :1960???Age:64 Y???Sex:Female D ate:03/20/2024 Address:[address] [place] Pcp:Bonilla Gomez MD Subjective: * Chief Complaints: [...]
--- OUTSIDE RECORDS SUMMARY | 2024-06-27 12:31 | XMS_ITS ---
Author Organization [facility] Address [address] [place] [address] Care Team Providers Care Clothes Separator Name Role Phone Bonilla Gomez MD Primary Care Provider Janay Burgos Unavailable [phone] REASON FOR VISIT Orthotic Appt. Encounters Encounter Location Date Provider Diagnosis [facility] [address] [place] [address] 03/07/2024 Janaykriss Gonzales Plan Of Treatment No Information Progress Notes * Liz BLACKWOOD MDOB:1960 (64 yo F)Acc No.[id number]:03/07/2024 Patient:?Liz Blackwood :1960???Age:64 Y???Sex:Female Address:[address] [place], [address] * true * Date:? Generated for Printi ng/Fafilibertog/eTransmitting on:?06/27/2024 12:31 PM EST
--- OUTSIDE RECORDS SUMMARY | 2024-06-27 12:32 | XMS_ITS | Clinical Summary ---
Author Organization [address] Address [address] [place] [address] Phone Care Team Providers Care Poultry Picking Machine Tender Name Role Phone Bonilla Lawson MD Primary Care Provider [phone] Social History Tobacco Use Types Packs/Day Years Used Date Smoking Tobacco: Never Assessed Comments Unknown Sex and Gender Information Value Date Recorded Sex Assigned at Not on file Legal Sex Female 9:49 PM EST Gender Identity Not on file Sexual Orientation Not on file Plan of Treatment Health Maintenance Due Date Last Done Comments Breast Cancer Screening 1960 DTaP,Tdap,and Td Vaccines (1 - Tdap) 1981 Pneumococcal Vaccine: 50+ Ye ars (1 of 1 - PCV) 02/16/2012 Zoster Vaccines (1 of 2) 02/16/2012 COVID-19 Vaccine ( - 2023-2 5 season) 2024 Influenza Vaccine (#1) 2024 Cervical Cancer Screening: P ap Smear 03/25/2027 03/25/2024 RSV Immunization Patients 60 + Years Old (1 - 1-dose 75+ series) 2037 HIB Vaccines Aged Out No longer eligi ble based on patient's age to complete this topic HPV Vaccines Aged Out No longer eligi ble based on patient's age to complete this topic Hepatitis A Vaccines Aged Out No long er eligible based on patient's age to complete this topic Hepatitis B Vaccines Aged Out No long er eligible based on patient's age to complete this topic IPV Vaccines Aged Out No longer eligi ble based on patient's age to complete this topic MMR Vaccines Aged Out No longer eligi ble based on patient's age to complete this topic Meningococcal ACWY Vaccine Aged Out N o longer eligible based on patient's age to complete this topic Meningococcal B Vacine Aged Out No lo nger eligible based on patient's age to complete this topic Pneumococcal Vaccine: Pediat rics (0 to 5 Years) and At-Risk Patients (6 to 64 Years) Aged Out No longer eligi ble based on patient's age to complete this topic RSV Immunization Patients Un michael 20 months Aged Out No longer eligible b ased on patient's age to complete this topic Varicella Vaccines Aged Out No longer eligible based on patient's age to complete this topic Procedures Procedure Name Priority Date/Time Associated Diagnosis Comments PAP SMEAR Routine 03/25/2024 12:00 AM EST Encounter for gynecological examination (general) (routine) without abnormal findings from Last 3 Months or Most Recently Relevant to Health Maintenance Results * Pap smear (03/25/2024 12:00 AM EST) Interpretation Negative for intraepithelial lesion or malignancy 03/27/2024 1:59 PM [facility] General Categorization Negative 03/27/2024 1:59 PM [facility] Specimen Adequacy Satisfactory for evaluation 03/27/2024 1:59 PM [facility] Pap Methodology Liquid Based Pap Test 03/27/2024 1:59 PM [facility] Disclaimer The Pap test is a screening test which carries an inherent false negative rate. These test results should be correlated with the patient's clinical findings and history. This Pap test was processed using an automated screening system. Technical cytopathology services provided by [facility], at [address] [place] [address] (CLIA # [id number]/Leila Daly MD, Putaway Driver.) 03/27/2024 1:59 PM [facility] Console Pap Interpretation Reported 03/27/2024 1:59 PM [facility] Brushing/Spatula Vaginal structure / Unknown 03/25/2024 03/26/2024 8:22 AM EST us Bonilla Lawson MD LAB CYTOLOGY ORDERABLES Final Result [facility] [address] [place] [address], from Last 3 Months or Most Recently Relevant to Health Maintenance Insurance [facility] Care Teams Poultry Picking Machine Tender Relationship Specialty Start Date End Date Bonilla Lawson MD [address] [address] PCP - General Obstetrics and Gynecology 05/30/24
== END 2024-06-27 11:42 | disposition home or self-care (01) ==
PROVIDERS: PCP Family Medicine; Visit Provider Surgery
DX: R10.11 Right upper quadrant pain (principal)
CPT/HCPCS: 99204

== ENCOUNTER → 2024-06-27 11:10 | Outpatient (BNVA) | payer BC, SELFPAY | PROVIDERS: PCP Family Medicine; Visit Provider Surgery ==

== ENCOUNTER 2024-07-04 13:45 | Outpatient (REF) | payer BC, SELFPAY ==
--- NOTE | ~2024-07-04 | US_ITS ---
EXAMINATION: US ABDOMEN LIMITED HISTORY: R10.11 - Right upper quadrant pain TECHNIQUE: Real-time grayscale ultrasound imaging of the right upper quadrant was performed and images were reviewed. COMPARISON: Comparison is made with the prior examination dated 06/18/2019. FINDINGS: Liver: The right lobe of the liver measures 14.7 cm in size. The left lobe of the liver measures 10.5 cm in size. The liver demonstrates normal homogeneous echotexture. Again seen is a 1.2 x 1.3 x 1.1 cm echogenic focus in the right lobe which likely represents a hemangioma. No intrahepatic biliary ductal dilatation is identified. There is normal hepatopedal flow in the portal vein. Gallbladder and biliary tree: The gallbladder is surgically absent. Imaging of the laparoscopy scar site with the patient reported tenderness demonstrates no definite hernia. The common bile duct is normal in caliber measuring 3 mm. Right Kidney: The right kidney measures 10.6 cm in length. The right kidney is unremarkable, without evidence of masses, hydronephrosis, or calculi. Pancreas: The pancreatic head, neck, and body are unremarkable. The pancreatic tail is obscured by bowel gas. Abdominal aorta and inferior vena cava: The visualized portions of the abdominal aorta and inferior vena cava are normal in caliber. There is no free fluid in the right upper quadrant. US/US abdomen limited IMPRESSION: 1. Status post cholecystectomy. No hernia is identified at laparoscopy scar site to correspond to the patient's tenderness. 2. Stable 1.2 x 1.3 x 1.1 cm probable hemangioma in the right lobe. Electronically signed by: Nacho Rachel MD 07/04/2024 03:29 PM [facility]
== END 2024-07-04 13:46 | disposition home or self-care (01) ==
LOC: HO.HMGCX 13:45
PROVIDERS: PCP Family Medicine; Visit Provider Surgery
DX: R10.11 Right upper quadrant pain (principal)
CPT/HCPCS: 76705

== ENCOUNTER → 2024-07-04 13:47 | Outpatient (BNV) | payer BC, SELFPAY | PROVIDERS: PCP Family Medicine; Visit Provider Radiology Diagnostic Radiology | DX: D18.00 Hemangioma unspecified site (principal) | CPT/HCPCS: 76705 ==

== ENCOUNTER 2024-07-16 07:52 | Outpatient (REF) | payer BC, SELFPAY ==
--- OUTSIDE RECORDS SUMMARY | 2024-07-16 07:56 | XMS_ITS ---
Author Organization [facility] Address [address] [place] [address] Care Team Providers Care Segment Block Layer Name Role Phone Jason HART, Bonilla Primary Care Provider Janay Burgos Unavailable [phone] Encounters Encounter Location Date Provider Diagnosis [address] [address] 03/20/2024 Janay Gonzales Plan Of Treatment No Information Progress Notes * Liz BLACKWOOD MDOB:1960 (64 yo F)Acc No.[id number]:03/20/2024 Progress Note Patient:Liz KITCHEN Provider:?Janay Gonzales DPM :1960???Age:64 Y???Sex:Female D ate:03/20/2024 Address:[address] [place] Pcp:Bonilla Gomez MD Subjective: * Chief Complaints: [...] Gonzales DPM Date:?2023 Generated for Gabriela craft/Ankita/eTransmitting on:?07/16/2024 07:55 AM EDT
--- OUTSIDE RECORDS SUMMARY | 2024-07-16 07:56 | XMS_ITS | Clinical Summary ---
Author Organization [address] Address [address] [place] [address] Phone Care Team Providers Care Model Maker Scale Name Role Phone Bonilla Lawson MD Primary Care Provider [phone] Social History Tobacco Use Types Packs/Day Years [...] 5 season) 2024 Influenza Vaccine (#1) 2024 Colorectal Cancer Screening: Colonoscopy 07/01/2024 Depression Screening 07/01/2024 HIV Screening 07/01/2024 Hepatitis C Screening 07/01/2024 Social Influencers of Health Screening 07/01/2024 Cervical Cancer Screening: P ap Smear 03/25/2027 [...] intraepithelial lesion or malignancy 03/27/2024 1:59 PM [facility] General Categorization Negative 03/27/2024 1:59 PM [facility] Specimen Adequacy Satisfactory for evaluation 03/27/2024 1:59 PM [facility] Pap Methodology Liquid Based Pap Test 03/27/2024 1:59 PM [facility] Disclaimer The Pap test is a screening test which carries an inherent false negative rate. These test results should be correlated with the patient's clinical findings and history. This Pap test was processed using an automated screening system. Technical cytopathology services provided by [facility], at [address] [place] [address], [place] [address] (CLIA # [id number]/Leila Daly MD, Defense Travel Administrator.) 03/27/2024 1:59 PM [facility] Console Pap Interpretation Reported 03/27/2024 1:59 PM [facility] Brushing/Spatula Vaginal structure / Unknown 03/25/2024 03/26/2024 8:22 AM EST Bonilla Lawson MD LAB CYTOLOGY ORDERABLES Final Result [facility] [address] [place] [address], from Last 3 Months or Most Recently Relevant to Health Maintenance Insurance [facility] Care Teams Model Maker Scale Relationship Specialty Start Date End Date Bonilla Lawson MD [address] [address] PCP - General Obstetrics and Gynecology 05/30/24
--- OUTSIDE RECORDS SUMMARY | 2024-07-16 07:56 | XMS_ITS | Encounter Summary ---
Author Organization [facility] Address [address] [place] [address] Care Team Providers Care Welt Treater Name Role Phone Bonilla Lawson MD Primary Care Provider [phone] Encounter Details Date Type Department Care Team (Latest Contact Info) Description 03/26/2024 Lab Requisition [facility] [address] [place] [address] Bonilla Lawson MD [address] [id number] Encounter for gynecological examination (general) (routine) without [...] lesion or malignancy 03/27/2024 1:59 PM EST [facility] General Categorization Negative 03/27/2024 1:59 PM EST [facility] Specimen Adequacy Satisfactory for evaluation 03/27/2024 1:59 PM EST [facility] Pap Methodology Liquid Based Pap Test 03/27/2024 1:59 PM EST [facility] Disclaimer The Pap test is a screening test which carries an inherent false negative rate. These test results should be correlated with the patient's clinical findings and history. This Pap test was processed using an automated screening system. Technical cytopathology services provided by [facility], at [address] [place] [address] (CLIA # [id number]/Leila Daly MD, Demo Specialist.) 03/27/2024 1:59 PM [facility] Console Pap Interpretation Reported 03/27/2024 1:59 PM [facility] Brushing/Spatula Vaginal structure / Unknown 03/25/2024 03/26/2024 8:22 AM EST us Bonilla Lawson MD LAB CYTOLOGY ORDERABLES Final Result [facility] [address] [place] [address], documented in this encounter Visit Diagnoses Diagnosis Encounter for gynecological examination (general) (routine) without abnormal findings documented in this encounter Care Teams Welt Treater Relationship Specialty Start Date End Date Bonilla Lawson MD [address] [address] PCP - General Obstetrics and Gynecology 05/30/24 documented as of this encounter
--- OUTSIDE RECORDS SUMMARY | 2024-07-16 07:56 | XMS_ITS ---
Author Organization [facility] Address [address] [facility] [place] [address] Care Team Providers Care Bone Density Technician Name Role Phone Jason HART, Bonilla Primary Care Provider Janay Burgos Unavailable [phone] Encounters Encounter Location Date Provider Diagnosis [address] [address] 03/08/2024 Janay Gonzales Plan Of Treatment No Information Progress Notes * Liz BLACKWOOD MDOB:1960 (64 yo F)Acc No.[id number]:03/08/2024 Progress Note Patient:Liz KITCHEN Provider:?Janay Gonzales DPM :1960???Age:64 Y???Sex:Female D ate:03/08/2024 Address:[address] [place] Pcp:Bonilla Gomez MD Subjective: * Chief Complaints: [...] DPM Date:?2023 Generated for Gabriela craft/Ankita/eTransmitting on:?07/16/2024 07:56 AM EDT
--- OUTSIDE RECORDS SUMMARY | 2024-07-16 07:56 | XMS_ITS ---
Author Organization [facility] Address [address] [place] [address] Care Team Providers Care Eyelet Maker Name Role Phone Bonilla Gomez MD Primary Care Provider Jaany Burgos Unavailable [phone] REASON FOR VISIT Orthotic Appt. Encounters Encounter Location Date Provider Diagnosis [facility] [address] [place] [address] 03/07/2024 Janaykate Gonzales Plan Of Treatment No Information Progress Notes * Liz BLACKWOOD MDOB:1960 (64 yo F)Acc No.[id number]:03/07/2024 Patient:?Liz Blackwood :1960???Age:64 Y???Sex:Female Address:[address] [place], [address] * true * Date:? Generated for Printi ng/Faxing/eTransmitting on:?07/16/2024 07:56 AM EDT
--- OUTSIDE RECORDS SUMMARY | 2024-07-16 07:56 | XMS_ITS | Data Portability ---
Author Organization [facility], [facility] Address [address] [place] [address] Care Team Providers Care Business Analytics Intern Name Role Phone BEREKET VOGT Primary Care Provider [phone] Assessment No assessment recorded. Plan of Treatment Reminders Order Date Submit Date Provider Last Modified By Organization Details Last Modified Time Details Appointments None record ed. Lab None record ed. Referral None record ed. Procedures None record ed. Surgeries None record ed. Imaging None record ed. Medication Orders None record ed. Patient TargetsNo targets recorded. Patient InstructionsNo instructions recorded. Reason for Referral None Reported. Problems Name Problem SNOMED Code Status Onset Date Resolution Date Notes Provider Name and Address Organization Details Recorded Time No complaint s 372178760 Active Status: 'I'; Not Available [facility] 4 09:16:38 Chondroma lacia of right patella 941896044934 39933 Active 2016 Problem Code: M22.41; Problem Code Type: ICD-10; Status: 'A'; Not Available [facility] 4 11:12:33 Chondroma lacia of left patella 470596749016 106 Active 2016 Problem Code: M22.42; Problem Code Type: ICD-10; Status: 'A'; Not Available [facility] 4 11:12:34 Problem Notes None recorded. Procedures Surgical History Date Name Laterality Status Provider Name and Address Organization Details Recorded Time 4 Knee Kenalog 40 1cc Injection, Bilateral completed Ekaterina Hanna PA-C [address], [place], [address], [place] [facility] 10/12/2023 15:26:28 Imaging Results None recorded. Procedure Notes None recorded. Medical Equipment None Reported. Allergies No known drug allergies Medications Name Sig Start Date Stop Date Status Note LastModified by Organization Details LastModified Time atorvastatin 20 mg tablet TAKE 1 TABLET BY MOUTH AT BEDTIME active Not Available Not Available No t Available alendronate 70 mg tablet TAKE 1 TABLET BY MOUTH EVERY WEEK active Not Available Not Available N ot Available omeprazole 20 mg capsule,delay ed release TAKE 1 CAPSULE BY MOUTH DAILY active Not Available Not Available No t Available codeine 10 mg-guaifenesi n 100 mg/5 mL oral liquid TAKE 5 ML ORALLY 2 TIMES A DAY NEEDED FOR ALLERGY SYMPTOMS FOR 7 DAYS active Not Available Not Available N ot Available nitrofurantoi n monohydrate/m acrocrystals 100 mg capsule TAKE 1 CAPSULE BY MOUTH TWICE A DAY FOR 5 DAYS active Not Available Not Available No t Available fiber active Not Available Not Availa ble Not Available multivitamin active Not Available Not Available Not Available Probiotic active Not Available Not Hillary ilable Not Available Osteo Bi-Flex active Not Available Not Available Not Available Myrbetriq 25 mg tablet,extend ed release TAKE 1 TABLET BY MOUTH EVERY DAY active Not Available Not Available No t Available Calcium 600-D3 Plus (mag-zinc) active Not Available Not Available N ot Available Yuvafem 10 mcg vaginal tablet INSERT 1 TABLET VAGINALLY EVERY 72 HOURS active Not Available Not Available No t Available Yuvafem Yuvafem 10MCG Tablet 2022 active Statu s: 'Curr ent'; Not Available Not Available Not Available Vitals Date Recorded Body height Body mass index (BMI) Body weight Provider Name and Address Organization Details Last Updated DateTime 10/12/2023 160.02 cm 27.1 kg/m2 24519.63 g JOSH MCDUFFIE [place] - [facility] 10/12/2023 15:06:33 Social History None recorded. Functional Status None recorded. Mental Status None recorded. Family History Nothing Reported. Medical History No medical history recorded. Gynecological HistoryNo gynecological history recorded. Obstetrics History GPAL:G 0 P 0 0 0 0 Past Encounters Encounter ID Performer Location Encounter Start Date Encounter Closed Date Diagnosis/Indication Diagnosis SNOMED-CT Code Diagnosis ICD10 Code Diagnosis Note [id number] AJ Hernandez [address] [place] [address] 10/12/2023 14:30:02 11/14/2023 13:55:24 Chondromalacia of right patella 2979128202 5481799 M22.41 Chondromal acia of left patella 2791151490 70476 M22.42 Health Concerns Section Related Observation LastModified by Organization Detai ls LastModified Time None Recorded Concern Status LastModified by Organization Details LastModified Time None Recorded Advance Directives Directive None Recorded Payers Encounter Date Sequence Insurance Name Policy Number Policy Thurman Covered Member ID Thurman Member ID Guarantor Name 10/12/2023 1 [place] [employer] Liz Jones [id number] Liz Jones Notes Date Note Type Note Provider Name and Address Organization Details Recorded Time 10/12/2023 text/html I am seeing the patient today under the supervision of {{ nati#}} who was available but who did not see the patient. HPI:Patient presents today follow-up regarding their {{Left Right Bi-later al*}} knee. They have had difficulty up and down stairs sitting standing. Previous injection gave good relief until recent. Problems ambulating. Zjee-lpb-isfcuak medications are helping somewhat but not significantly. Pain is constant aching sometimes sharp pain with giving out sensations. Past family, medical, social history and review of systems has been reviewed, updated and is located in the patient? s chart. Examination:The patient is well appearing and in no apparent distress. Alert and oriented x3. Gait is symmetric. Examination of the {{Left Right Bi-later al*}} knee reveals no evidence of any edema, erythema, or warmth. No Deformity. Range of motion of the knee limited with mild discomfort at the end ranges. Mild effusion. Does have some tenderness to palpation about the medial hemijoint line. No tenderness to palpation about the lateral hemijoint line. Patellofemoral crepitus is noted. mild lateral ligamentous laxity. Negative Shirlene? s . Calf is supple and nontender. Neurovascularly intact distally. Impression:{{Left Rig ht Bi-lateral*}} Knee osteoarthritis Plan:We discussed the role of conservative management including medications, physical therapy, injection and bracing. At this point the patient was to proceed with injection. Please see procedure note. They will follow up with us as scheduled. [address], [place], [address], [facility] - [facility] 10/12/2023 15:26:57 OBGyn Episode No OBEpisode recorded.
--- OUTSIDE RECORDS SUMMARY | 2024-07-16 07:56 | XMS_ITS | Patient Health Record ---
Author Organization [facility] Address [address] [place] [address] Care Team Providers Care Certified Orthotist Name Role Phone Jason HART, Bonilla Primary Care Provider Janay Burgos Unavailable [phone] Allergies Allergen (clinical drug ingredient) Drug/Non Drug [...] W/U Status Risk Notes Problem Plantar wart (74834579) Plantar wart (B07.0) Active confirmed Problem Localized, primary osteoarthritis of the ankle and/or foot (909941486) Primary osteoarthrit is, right ankle and foot (M19.071) Active confirmed Problem Localized, primary osteoarthritis of the ankle and/or foot (618626279) Primary osteoarthrit is, left ankle and foot (M19.072) Active confirmed Problem Plantar nerve lesion (526030800) Lesion of plantar nerve, 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 Vital Signs Height 5ft4in in 12/07/2023 Weight 150 lbs 12/07/2023 BMI 25.74 kg/m2 12/07/2023 Procedures Procedure Date Ordered Date Performed Result Body Sit e 44390-Qxty Destruction, 1-14 12/07/2023 N/A Encounters Encounter Location Date Provider Diagnosis [address] [address] 12/07/2023 Janay Black Metatarsalgia, left foot M77.42 ; Primary osteoarthritis, left ankle and foot M19.072 ; Right foot pain M79.671 ; Plantar wart B07.0 ; Left foot pain M79.672 and Hypertrophy of bone M89.[address] [facility] [address] 10/04/2023 Jan[facility] Black [facility] [address] 12/07/2023 Janay Black [facility] [address] 01/12/2024 Janay Black [address] [address] 03/07/2024 Ajnay Black Assessments Encounter Date Diagnosis (ICD Code) [...] Treatment Pending Test Test Name Order Date 60102-Cfhi Destruction, 1-14 12/07/2023 52266-Xzkyyiae Plate 01/28/2019 63427-ZZE 09/19/2011 32332-SSB 10/10/2011 99957-HHQ 10/31/2011 44212- Debride <25 sq cm 02/14/2019 31082- Debride <25 sq cm 10/31/2011 33266-FLRTEGK SKIN/TISSUE 10/31/2011 06396-TNQDQQY SKIN/TISSUE 10/10/2011 Insurance Providers Payer Name Payer Address Payer Phone Subscriber Number Group Number Insured Name Patient Relationship to Insured Coverage Start Date Coverage End Date [facility] [address] [place] [address] [id number] Liz Barbosa Self - patient is the insured Medical (General) History Medical History History ICD Code broken bones chicken pox measles mumps gestational diabetes Arthritis Back,Hip,and Knee pain Gall bladder problems Psoriasis/eczema Surgical History Surgery Date(Month/Year) liposuction 2010 Hysterectomy 06/2015 Gall bladder 2014 Hospitalization History Reason Date(Month/Year) medex- [place] [facility]
[2024-07-16 10:42] LABS: Alanine Aminotransferase 40 U/L (0-31); Albumin Level 4.4 g/dL (3.5-5.0); Alkaline Phosphatase 59 U/L (39-117); Anion Gap 11 (12-20); Aspartate Amino Transferase 35 U/L (5-31); Bilirubin Total 0.8 mg/dL (0.0-1.0); Blood Urea Nitrogen 21 mg/dL (9-16); Calcium 9.1 mg/dL (8.4-10.2); Carbon Dioxide 27 mmol/L (22-29); Chloride 108 mmol/L (96-108); Estimated Average Glucose 120 mg/dL; Estimated Glomerular Filt Rate > 60; Glucose Fasting 101 mg/dL (60-99); Hemoglobin A1C 143.2522 umol/L; Hemoglobin A1c % 5.8 % (<6.0); Potassium 4.2 mmol/L (3.3-5.1); Sodium 142 mmol/L (135-145); Total Hemoglobin (HGBA1C) 3555.0414 umol/L; Total Protein 7.6 g/dL (6.5-8.0)
== END 2024-07-16 07:53 | disposition home or self-care (01) ==
LOC: HO.HMGCLDS 07:52
PROVIDERS: PCP Family Medicine; Visit Provider Family Medicine
DX: Z00.00 Encounter for general adult medical examination without abnormal findings (principal); R74.8 Abnormal levels of other serum enzymes; R73.01 Impaired fasting glucose; R73.03 Prediabetes
CPT/HCPCS: 36415; 80053; 83036

== ENCOUNTER 2024-07-30 10:03 | Outpatient (AMB) | payer BC, SELFPAY ==
--- NOTE | 2024-07-30 10:08 | MHC.OFFVIS ---
Intake Visit Reasons: US follow-up Intake Note: Patient is seen in office for ultrasound results, following right upper quadrant pain. Pt c/o: admits to continued abdomen pain, here for results us:07/04/24 Retail Assistant Manager Required: No Accompanied by: Self / Same As Patient Allergies house dust Allergy (Mild, Verified 07/30/24 10:13) Nasal congestion Seasonal Allergies Allergy (Mild, Verified 07/30/24 10:13) watery, cough HPI Comments Details: 64-year-old female patient presenting for evaluation of pain in the right upper quadrant. Pain is intermittent in the nature but seems to be related to activity. She denies any palpable mass, nausea, vomiting, diarrhea, or other symptoms. She is status post laparoscopic cholecystectomy in 2016. She also has a history of breast cancer. She is concerned that this could be related to her cancer. Previous evaluation revealed no palpable mass in the area of maximal tenderness. She was subsequently sent for an ultrasound of the abdomen performed on 07/04/2024. This revealed no evidence of incisional hernia or mass/fluid collections in the area of tenderness. A copy of the report was provided to the patient today. [facility] Medical History Varicose vein of leg Breast cancer Hyperlipidemia Osteoporosis Surgical History Hx laparoscopic cholecystectomy Hx of varicose vein stripping H/O colonoscopy Hx of mastectomy History of open reduction and internal fixation (ORIF) procedure History of hysterectomy Family History Father Squamous cell carcinoma in situ Mother No problems noted. Sister No problems noted. Brother No problems noted. Brother No problems noted. Daughter No problems noted. Daughter No problems noted. 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 No hernia is appreciated on examination but she certainly is tender with Valsalva maneuvers. Further evaluation with ultrasound of the abdomen revealed no suspicious findings and no evidence of hernia. A copy of the report was provided to the patient. No further workup is warranted at this time. She should follow up as needed. Coding Level of Care Code Est Pt Level 3 (22039) Diagnoses Right upper quadrant abdominal pain R10.11
--- OUTSIDE RECORDS SUMMARY | 2024-07-30 11:52 | XMS_ITS ---
Author Organization [facility] Address [address] [facility] [address] Care Team Providers Care Breast Trimmer Name Role Phone Jason HART, Bonilla Primary Care Provider Janay Burgos Unavailable [phone] Encounters Encounter Location Date Provider Diagnosis [address] [address] 03/08/2024 Janay Gonzales Plan Of Treatment No Information Progress Notes * Liz BLACKWOOD MDOB:1960 (64 yo F)Acc No.[id number]:03/08/2024 Progress Note Patient:Liz KITCHEN Provider:?Janay Gonzales DPM :1960???Age:64 Y???Sex:Female D ate:03/08/2024 Address:[address] , [place] Pcp:Bonilla Gomez MD Subjective: * Chief Complaints: [...] Gonzales DPM Date:?2023 Generated for Gabriela craft/Ankita/eTransmitting on:?07/30/2024 11:52 AM EDT
--- OUTSIDE RECORDS SUMMARY | 2024-07-30 11:52 | XMS_ITS ---
Author Organization [facility] Address [address] [facility] [place] [address] Care Team Providers Care Lumber Sorter Machine Name Role Phone Jason HART, Bonilla Primary Care Provider Janay Burgos Unavailable [phone] Encounters Encounter Location Date Provider Diagnosis [address] [address] 03/20/2024 Janay Gonzales Plan Of Treatment No Information Progress Notes * Liz BLACKWOOD MDOB:1960 (64 yo F)Acc No.[id number]:03/20/2024 Progress Note Patient:Liz KITCHEN Provider:?Janay Gonzales DPM :1960???Age:64 Y???Sex:Female D ate:03/20/2024 Address:[address] , [place] Pcp:Bonilla Gomez MD Subjective: * Chief Complaints: [...]
--- OUTSIDE RECORDS SUMMARY | 2024-07-30 11:52 | XMS_ITS ---
Author Organization [facility] Address [address] [place] [address] Care Team Providers Care Video Engineer Name Role Phone Bonilla Gomez MD Primary Care Provider Janay Burgos Unavailable [phone] REASON FOR VISIT Orthotic Appt. Encounters Encounter Location Date Provider Diagnosis [facility] [address] [place] [address] 03/07/2024 Janaykate Gonzales Plan Of Treatment No Information Progress Notes * Liz BLACKWOOD MDOB:1960 (64 yo F)Acc No.[id number]:03/07/2024 Patient:?Liz Blackwood :1960???Age:64 Y???Sex:Female Address:[address] [place], [address] * true * Date:? Generated for Printi ng/Faxing/eTransmitting on:?07/30/2024 11:52 AM EDT
--- OUTSIDE RECORDS SUMMARY | 2024-07-30 11:53 | XMS_ITS | Clinical Summary ---
Author Organization [address] Address [address] [place] [address] Phone Care Team Providers Care Operations Director Name Role Phone Bonilla Lawson MD Primary Care Provider [phone] Social History Tobacco Use Types Packs/Day Years [...] intraepithelial lesion or malignancy 03/27/2024 1:59 PM [facility] General Categorization Negative 03/27/2024 1:59 PM [facility] Specimen Adequacy Satisfactory for evaluation 03/27/2024 1:59 PM [facility] Pap Methodology Liquid Based Pap Test 03/27/2024 1:59 PM [facility] Disclaimer The Pap test is a screening test which carries an inherent false negative rate. These test results should be correlated with the patient's clinical findings and history. This Pap test was processed using an automated screening system. Technical cytopathology services provided by [facility], at [address] [place] [address], [place] [address] (CLIA # [id number]/Leila Daly MD, Unpaid Intern.) 03/27/2024 1:59 PM [facility] Console Pap Interpretation Reported 03/27/2024 1:59 PM [facility] Brushing/Spatula Vaginal structure / Unknown 03/25/2024 03/26/2024 8:22 AM EST Bonilla Lawson MD LAB CYTOLOGY ORDERABLES Final Result [facility] [address] [place] [address], from Last 3 Months or Most Recently Relevant to Health Maintenance Insurance [facility] Care Teams Operations Director Relationship Specialty Start Date End Date Bonilla Lawson MD [address] [address] PCP - General Obstetrics and Gynecology 05/30/24
--- OUTSIDE RECORDS SUMMARY | 2024-07-30 11:53 | XMS_ITS | Patient Health Record ---
Author Organization [facility] Address [address] [facility] [place] [address] Care Team Providers Care Port Engineer Name Role Phone Jason HART, Bonilla Primary Care Provider Janay Burgos Unavailable [phone] Allergies Allergen (clinical drug ingredient) Drug/Non Drug [...] W/U Status Risk Notes Problem Plantar wart (78434890) Plantar wart (B07.0) Active confirmed Problem Localized, primary osteoarthritis of the ankle and/or foot (321544343) Primary osteoarthrit is, right ankle and foot (M19.071) Active confirmed Problem Localized, primary osteoarthritis of the ankle and/or foot (907112153) Primary osteoarthrit is, left ankle and foot (M19.072) Active confirmed Problem Plantar nerve lesion (121799719) Lesion of plantar nerve, 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 Vital Signs Height 5ft4in in 12/07/2023 Weight 150 lbs 12/07/2023 BMI 25.74 kg/m2 12/07/2023 Procedures Procedure Date Ordered Date Performed Result Body Sit e 09990-Lesx Destruction, 1-14 12/07/2023 N/A Encounters Encounter Location Date Provider Diagnosis [address] [address] 12/07/2023 Janay Black Metatarsalgia, left foot M77.42 ; Primary osteoarthritis, left ankle and foot M19.072 ; Right foot pain M79.671 ; Plantar wart B07.0 ; Left foot pain M79.672 and Hypertrophy of bone M89.[address] [facility] [address] 10/04/2023 [facility] [address] 12/07/2023 Janay Black [facility] [address] 01/12/2024 Janay Black [address] [address] 03/07/2024 Janay Black Assessments Encounter Date Diagnosis [...] Treatment Pending Test Test Name Order Date 54591-Mfgk Destruction, 1-14 12/07/2023 20139-Ambadjfn Plate 01/28/2019 28050-SBV 09/19/2011 53781-FQS 10/10/2011 37293-ZLL 10/31/2011 17355- Debride <25 sq cm 02/14/2019 66577- Debride <25 sq cm 10/31/2011 97717-ATZQXMV SKIN/TISSUE 10/31/2011 06461-IQKOSLG SKIN/TISSUE 10/10/2011 Insurance Providers Payer Name Payer Address Payer Phone Subscriber Number Group Number Insured Name Patient Relationship to Insured Coverage Start Date Coverage End Date [facility] [address] [place] [address] [id number] Liz Barbosa Self - patient is the insured Medical (General) History Medical History History ICD Code broken bones chicken pox measles mumps gestational diabetes Arthritis Back,Hip,and Knee pain Gall bladder problems Psoriasis/eczema Surgical History Surgery Date(Month/Year) liposuction 2010 Hysterectomy 06/2015 Gall bladder 2014 Hospitalization History Reason Date(Month/Year) medex- [place] [facility]
--- OUTSIDE RECORDS SUMMARY | 2024-07-30 11:53 | XMS_ITS | Encounter Summary ---
Author Organization [facility] Address [address] [place] [address] Care Team Providers Care After School Coordinator Name Role Phone Bonilla Lawson MD Primary Care Provider [phone] Encounter Details Date Type Department Care Team (Latest Contact Info) Description 03/26/[address] [facility] [address] [place] [address] Bonilla Lawson MD [address] [phone] Encounter for gynecological examination (general) (routine) without [...] lesion or malignancy 03/27/2024 1:59 PM EST [facility] General Categorization Negative 03/27/2024 1:59 PM EST [facility] Specimen Adequacy Satisfactory for evaluation 03/27/2024 1:59 PM EST [facility] Pap Methodology Liquid Based Pap Test 03/27/2024 1:59 PM EST [facility] Disclaimer The Pap test is a screening test which carries an inherent false negative rate. These test results should be correlated with the patient's clinical findings and history. This Pap test was processed using an automated screening system. Technical cytopathology services provided by [facility], at [address] [place] [address] (CLIA # [id number]/Leila Daly MD, Ship'S Pilot.) 03/27/2024 1:59 PM [facility] Console Pap Interpretation Reported 03/27/2024 1:59 PM [facility] Brushing/Spatula Vaginal structure / Unknown 03/25/2024 03/26/2024 8:22 AM EST us Bonilla Lawson MD LAB CYTOLOGY ORDERABLES Final Result [facility] [address] [place] [address], documented in this encounter Visit Diagnoses Diagnosis Encounter for gynecological examination (general) (routine) without abnormal findings documented in this encounter Care Teams After School Coordinator Relationship Specialty Start Date End Date Bonilla Lawson MD [address] [address] PCP - General Obstetrics and Gynecology 05/30/24 documented as of this encounter
== END 2024-07-30 10:23 | disposition home or self-care (01) ==
LOC: HO.HGS 10:04
PROVIDERS: PCP Family Medicine; Visit Provider Surgery
DX: R10.11 Right upper quadrant pain (principal)
CPT/HCPCS: 99213

== ENCOUNTER 2024-08-05 08:35 | Outpatient (AMB) | payer BC, SELFPAY ==
--- NOTE | 2024-08-05 08:40 | MHC.PC.OV ---
Vital Signs 08/05/24 08:43 Height 5 ft 4 in Weight 153 lb 2 oz BMI 26.3 BP 130/80 Blood Pressure Location Rt brachial Position Sitting Respiration 14 Pulse 81 Pulse Source Pulse Oximeter Temp 98.2 F Temp Source Oral Pulse Oximetry (%) 98 Oxygen Delivery Method Room Air Intake Visit Reasons: F/U on labs Intake Note: patient is scheduled to review labs with pcp Gluing Machine Adjuster Required: No Allergies house dust Allergy (Mild, Verified 08/05/24 08:41) Nasal congestion Seasonal Allergies Allergy (Mild, Verified 08/05/24 08:41) watery, cough Medication List - Last Reconciled 08/05/24 by Bonilla Gomez MD alendronate 70 mg PO QWEEK atorvastatin 20 mg PO BEDTIME calcium carbonate (Calcium 600) 600 mg PO DAILY [D-harshal PO DAILY] estradiol (Yuvafem) 10 mcg vaginal DAILY glucosamine-chondroitin 250-200 mg (Osteo Bi-Flex) 2 tabs PO DAILY lactobacillus combination no.8 (Adult Probiotic) 3,000 mmu cells PO DAILY mirabegron ER (Myrbetriq) 25 mg PO DAILY pt-jld-edcnw-calcium carb-K1 400 mcg-500 mg calcium-20 mcg (Women's 50 Plus Multivitamin) 1 tab PO DAILY omeprazole 20 mg PO DAILY psyllium husk (Fiber (psyllium husk)) 0.4 grams PO DAILY Tobacco use date assessed: 05/06/24 Dental Screening Dental Screen Date: 05/06/24 HPI F/U on labs HPI Details 64 y/o female presents to f/u labs, RUQ pain. Abdomen ultrasound 07/04/24 shows: 1. Status post cholecystectomy. No hernia is identified at laparoscopy scar site to correspond to the patient's tenderness. 2. Stable 1.2 x 1.3 x 1.1 cm probable hemangioma in the right lobe. Had been seen by general surgery at [facility]. They note pain could be secondary to prior surgery. Labs drawn 07/16/24. Reviewed labs with pt. A1c 5.8%. Elevated liver enzymes - AST 35, ALT 40. PFSH Medical History Varicose vein of leg Breast cancer Hyperlipidemia Osteoporosis Surgical History Hx laparoscopic cholecystectomy Hx of varicose vein stripping H/O colonoscopy Hx of mastectomy History of open reduction and internal fixation (ORIF) procedure History of hysterectomy Family History Father Squamous cell carcinoma in situ Mother No problems noted. Sister No problems noted. Brother No problems noted. Brother No problems noted. Daughter No problems noted. Daughter No problems noted. 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 1. Little interest or pleasure in doing things: several days 2. Feeling down, depressed, or hopeless: several days 3. Trouble falling or staying asleep, or sleeping too much: not at all 4. Feeling tired or having little energy: several days 5. Poor appetite or overeating: several days 6. Feeling bad about yourself - or that you are a failure or have let yourself or your family down: not at all 7. Trouble concentrating on things, such as reading the newspaper or watching television: not at all 8. Moving or speaking so slowly that other people could have noticed. Or the opposite - being so fidgety or restless that you have been moving around a lot more than usual: not at all 9. Thoughts that you would be better off or of hurting yourself in some way: not at all Total score: 4 Depression Screening Interpretation: Negative Depression Screening Done: Yes 52055 - PHQ-9 Billing: Yes Source: Developed by Drs. Nacho Alvarado, Iza Coles, Xavier Calvin and colleagues, with an educational eliseo from [employer]. Thrive Questionnaire Date Thrive assessed: 08/05/24 I am a: Patient What is your living situation today?: I have a steady place to live Within the past 12 months, did the food you bought not last and you didn't have the money to get more?: Never true Within the past 12 months, did you worry whether your food would run out before you got money to buy more?: Never true Do you have trouble paying for medicines?: No Do you have trouble getting transportation to medical appointments?: No Do you have trouble paying your heating and electricity bill?: No Do you have trouble taking care of your child, family member or friend?: No Do you have trouble with day-to-day activities such as bathing, preparing meals, shopping, managing finances, etc.?: No Are you currently unemployed and looking for a job?: No Are you interested in more education?: No Please select the resources that you would like help with: None Currently or been in a relationship where the following occur: No concerns reported THRIVE Score: 0 AUDIT C Alcohol Use Questionnaire (AUDIT-C) 1. How often do you have a drink containing alcohol?: Monthly or less 2. How many drinks containing alcohol do you have on a typical day when you are drinking?: 1 or 2 3. How often do you have six or more drinks on one occasion?: Never Total Score: 1 KANDACE-7 AMB Questionnaire KANDACE-7 Date KANDACE - 7 assessed: 08/05/24 Feeling nervous, anxious, or on edge: 1 = Several days Not being able to stop or control worryin = Several days Worrying too much about different things: 1 = Several days Trouble relaxin = Several days Being so restless that it is hard to sit still: 0 = Not at all Becoming easily annoyed or irritable: 0 = Not at all Feeling afraid as if something awful might happen: 1 = Several days Total KANDACE-7 score (0-4 normal; 5-9 mild; 10-14 moderate; 15-21 severe): 5 Source: Developed by Drs. Nacho Alvarado, Iza Coles, Xavier Calvin and colleagues, with an educational eliseo from [employer]. KANDACE-7 Assessment Billing KANDACE-7 Assessment Tool: KANDACE-7 Assessment 65227 Review of Systems Const Denies chills, Denies fatigue, Denies fever(s), Denies headache(s) and Denies weakness ENT Denies dizziness and Denies headache(s) Card Denies dyspnea Resp Denies cough, Denies dyspnea, Denies wheezing and Denies other (shortness of breath) Musc Denies numbness and Denies tingling Neuro Denies dizziness, Denies headache(s), Denies numbness, Denies tingling and Denies weakness Psych Denies anxiety and Denies depression Endo Denies fatigue Aller/Immun Denies wheezing Physical exam (Primary Care) Vital Signs: Last Vital Signs Temp 98.2 F 08/05/24 08:43 Pulse 81 08/05/24 08:43 Resp 14 08/05/24 08:43 BP 130/80 08/05/24 08:43 Pulse Ox 98 08/05/24 08:43 Oxygen Delivery Method Room Air 08/05/24 08:43 BMI result Body Mass Index 26.3 Tobacco/Smoking Status: Tobacco use Status Tobacco use date assessed 05/06/24 08/05/24 08:46 Patient Tobacco Use Status Former Tobacco user 08/05/24 08:46 e-Cigarette/Vaping Use Never Used 08/05/24 08:46 PHQ-9: PHQ-9 Score PHQ-9: Total score 4 08/05/24 08:46 Depression Screening Interpretation: Negative Thrive Assessment: Date of Thrive Assessment Date Thrive assessed 08/05/24 08/05/24 08:46 Currently or been in a relationship where the following occur: No concerns reported Const General: well developed; No acute distress Nutritional Appearance: well nourished Orientation/consciousness: [facility]: Yes normocephalic and Yes atraumatic Eyes General: appearance normal, both eyes and all related structures Pupils: Equal, round and reactive pupils present EOM: EOMs intact bilaterally Resp Effort & Inspection: normal respiratory effort Auscultation: clear to auscultation bilaterally Cardio Rate: regular rate Rhythm: regular rhythm Heart sounds: S1 normal heart sound present, S2 normal heart sound present, no gallops, no murmurs and no rubs Neuro General: patient oriented x3 and gait normal Cranial nerves: Yes Equal, round and reactive pupils present Psych Affect: normal affect Coding Level of Care Code Est Pt Level 4 (63257) Diagnoses Right upper quadrant abdominal pain R10.11 Pre-diabetes R73.03 Elevated liver enzymes R74.8 Additional Codes KANDACE-7 Assessment Billing - KANDACE-7 Assessment Tool: KANDACE-7 Assessment 56526 ([id number]) PHQ-9 - 89315 - PHQ-9 Billing: Yes ([id number]) Assessment & Plan Assessment & Plan (1) Right upper quadrant abdominal pain: Code(s): R10.11 - Right upper quadrant pain Category: Medical Plan: Patient?had?had?some?right?upper?quadrant?pain?and?was?seen?by?General?surgery?at?[facility] ?Catarino?feels?this?is?likely?secondary?to?prior?surgeries Ultrasound?did?not?reveal?any?other?issues; hemangioma,?benign?and?likely?to?be?an?underlying?cause?of?her?pain. (2) Pre-diabetes: Code(s): R73.03 - Prediabetes Category: Medical Plan: A1c?improved?from?6.3%?to?5.8%.??Pre?diabetes?range Continue?diet?low?in?sugars?and?starches.??Continue?weight?loss?and?exercise (3) Elevated liver enzymes: Code(s): R74.8 - Abnormal levels of other serum enzymes Category: Medical Plan: Mildly?elevated?liver?enzymes. Patient?had?a?recent?right?upper?quadrant?ultrasound?which?shows?hemangioma?in?this?is?likely?the?underlying?cause?of?mildly?elevated?liver?enzymes. Continue?to?monitor Orders: Orders Hemoglobin A1c Today R73.01 - Impaired fasting glucose, R73.03 - Prediabetes Comprehensive [place]. Panel Fast Today R74.8 - Abnormal levels of other serum enzymes, Z00.00 - Encounter for general adult medical examination without abnormal findings Lipid Panel Today E78.5 - Hyperlipidemia, unspecified, Z00.00 - Encounter for general adult medical examination without abnormal findings
[2024-08-05 08:43] VITALS: BP 130/80; PULSE 81; RESP 14; TEMP 36.8; O2SAT 98; BMI 26.3
== END 2024-08-05 09:04 | disposition home or self-care (01) ==
LOC: HO.HMCFM 08:36
PROVIDERS: PCP Family Medicine; Visit Provider Family Medicine
DX: R10.11 Right upper quadrant pain (principal); R73.03 Prediabetes; R74.8 Abnormal levels of other serum enzymes

== ENCOUNTER → 2024-08-05 08:35 | Outpatient (BNVA) | payer BC, SELFPAY | PROVIDERS: PCP Family Medicine; Visit Provider Family Medicine | DX: R10.11 Right upper quadrant pain (principal); R73.03 Prediabetes; R74.8 Abnormal levels of other serum enzymes | CPT/HCPCS: 96127 ==

== ENCOUNTER 2025-01-14 07:33 | Outpatient (REF) | payer BC, SELFPAY ==
--- OUTSIDE RECORDS SUMMARY | 2024-03-08 09:45 | XMS_ITS ---
Author Organization [facility] Address [address] [facility] [place] [address] Care Team Providers Care Concrete Batcher Name Role Phone Jaosn HART, Bonilla Primary Care Provider Janay Burgos [phone] Encounters Encounter Location Date Provider Diagnosis [address] [address] 03/08/2024 Janay Gonzales Plan Of Treatment No Information Progress Notes * Liz BLACKWOOD MDOB:1960 (64 yo F)Acc No.[id number]:03/08/2024 Progress Note Patient: Liz HEALY Provider: Catrina Gonzales DPM :1960 A ge:64 Y S ex:Female Date:03/08/2024 Address:[address] , [id number] Pcp:Bonilla Gomez MD Subjective: * Chief Complaints: * * Medical History: Objective: * Vitals: Assessment: Plan: * Treatment: * Images: * The named appointment provid er may or may not be the originator of this progress note, and it is not deemed complete until electronically signed by the appointment provider. Sign off status: Pending * Provider: Catrina Gonzales DPM Date: 1 05/08/2023 Generated for Omayrai luana/Ankita/eTransmitting on: 0 01/14/2025 07:36 AM EDT
--- OUTSIDE RECORDS SUMMARY | 2024-03-20 10:00 | XMS_ITS ---
Author Organization [facility] Address [address] [facility] [place] [address] Care Team Providers Care Emissions Inspector Name Role Phone Jason HART, Bonilla Primary Care Provider Janay Burgos [phone] Encounters Encounter Location Date Provider Diagnosis [address] [address] 03/20/2024 Janya Gonzales Plan Of Treatment No Information Progress Notes * Liz BLACKWOOD MDOB:1960 (64 yo F)Acc No.[id number]:03/20/2024 Progress Note Patient: Liz HEALY Provider: Catrina Gonzales DPM :1960 A ge:64 Y S ex:Female Date:03/20/2024 Address:[address] [id number] Pcp:Bonilla Gomez MD Subjective: * Chief Complaints: [...] 05/20/2023 Generated for Omayrai luana/Ankita/eTransmitting on: 0 01/14/2025 07:36 AM EDT
--- OUTSIDE RECORDS SUMMARY | 2025-01-14 07:37 | XMS_ITS | Encounter Summary ---
Author Organization [facility] Address [address] [place] [address] Care Team Providers Care Dental Equipment Mechanic Name Role Phone Bonilla Lawson MD Primary Care Provider [phone] Encounter Details Date Type Department Care Team (Latest Contact Info) Description 03/26/2024 Lab Requisition [facility] - Main Lab [address] [place] [address] Bonilla Lawson MD [address] [phone] Encounter for gynecological examination (general) (routine) without [...] lesion or malignancy 03/27/2024 1:59 PM EST [facility] General Categorization Negative 03/27/2024 1:59 PM EST [facility] Specimen Adequacy Satisfactory for evaluation 03/27/2024 1:59 PM EST [facility] Pap Methodology Liquid Based Pap Test 03/27/2024 1:59 PM EST [facility] Disclaimer The Pap test is a screening test which carries an inherent false negative rate. These test results should be correlated with the patient's clinical findings and history. This Pap test was processed using an automated screening system. Technical cytopathology services provided by [facility], at [address] [place] [address] (CLIA # [id number]/Lelia Daly MD, Financial Sales Assistant.) 03/27/2024 1:59 PM [facility] Console Pap Interpretation Reported 03/27/2024 1:59 PM [facility] Brushing/Spatula Vaginal structure / Unknown 03/25/2024 03/26/2024 8:22 AM EST us Bonilla Lawson MD LAB CYTOLOGY ORDERABLES Final Result [facility] [address] [place] [address], documented in this encounter Visit Diagnoses Diagnosis Encounter for gynecological examination (general) (routine) without abnormal findings documented in this encounter Care Teams Dental Equipment Mechanic Relationship Specialty Start Date End Date Bonilla Lawson MD [address] [phone] PCP - General Obstetrics and Gynecology 05/30/24 documented as of this encounter
--- OUTSIDE RECORDS SUMMARY | 2025-01-14 07:37 | XMS_ITS | Patient Health Record ---
Author Organization [facility] Address [address] [place] [address] Care Team Providers Care Carbon Brush Maker Name Role Phone Jason HART, Bonilla Primary Care Provider Janay Burgos Unavailable [phone] Allergies Allergen (clinical drug ingredient) Drug/Non Drug Allergy documented on EMR Reaction Allergy Type Onset Date Status Information temporarily unavailable Keflex hives Drug Allergy Active Reason For Referral No Information Medications Medication SIG (Take, Route, Frequency, Duration) Notes Start Date End Date Status Osteo Bi-Flex Joint Shield Not-Taking Alendronate Sodium 70 MG 1 tablet 30 min utes before the first food, beverage or medicine of the day dissolved in 4 ounces of water Orally Active Yuvafem Active Mirabegron ER 25 MG 1 tablet Orally Once a day Active Atorvastatin Calcium 20 MG/5ML 5 mL Orally Once a day Activ e Work Note . . . .; Duration: . 10/10/2011 Not-Taking Osteo Bi-Flex Adv Double St Not-Taking Omeprazole Not-Takin g Calcium 600 MG 1 tablet with meals Orally Twice a day Active Tylenol Arthritis Pain Not-Taking Centrum Women Active Probiotic Active Glucosamine Pro Joint plus Act marcella Fiber Active Immunizations Vaccine Route Administration Date Status Comme nts Influenza Unknown 01/07/2024 Administered COVID-19 Moderna Vaccine Unknown 01/08/2021 Administere d 1st shot 07/01/2020 Social History Tobacco Use: Social History Observation Description Date Details (start date - stop date) Never Smoker NA - NA Alcohol Screen Question Answer Notes Did you have a drink containing alcohol in the p ast year? Yes Points 0 Interpretation Negative Tobacco use other than smoking: Question Answer Notes Are you an other tobacco user? No Tobacco Control (Standard) Question Answer Notes Tobacco use: Nonsmoker AUDIT-C (Standard) Question Answer Notes Did you have a drink containing alcohol in the p ast year? No Points 0 Interpretation Negative Problems Problem Type SNOMED Code ICD Code Onset Dates Problem Status W/U Status Risk Notes Problem Plantar wart (06437622) Plantar wart (B07.0) Active confirmed Vital Signs Blood pressure diastolic 80 mm Hg 12/02/2024 Height 5ft4in in 12/02/2024 Blood pressure systolic 118 mm Hg 12/02/2024 Weight 154 lbs 12/02/2024 BMI 26.43 kg/m2 12/02/2024 Procedures Procedure Date Ordered Date Performed Result Body Sit e [id number] Destruction, 05-2112/02/2024 N/A Encounters Encounter Location Date Provider Diagnosis [facility] [address] 12/02/2024 Janay Black Left foot pain M79.672 and Plantar wart B07.0 [facility] [address] 03/07/2024 Janay Black Assessments Encounter Date Diagnosis (ICD Code) Assessment Notes Treatment Notes Treatment Clinical Notes Section Notes 12/02/2024 Left foot pain (ICD-10 - M79.672) 12/02/2024 Plantar wart (ICD-10 - B07.0) Plan Of Treatment Pending Test Test Name Order Date [id number] Destruction, 05-2112/07/2023 94736-Vbed Destruction, 05-2112/02/2024 [id number]-Sqbpmptd Plate 01/28/2019 [id number] 09/19/2011 08411-DAR 10/10/2011 [id number] 10/31/2011 57156- Debride <25 sq cm 02/14/2019 21904- Debride <25 sq cm 10/31/2011 [id number] SKIN/TISSUE 10/31/2011 [id number] SKIN/TISSUE 10/10/2011 Insurance Providers Payer Name Payer Address Payer Phone Subscriber Number Group Number Insured Name Patient Relationship to Insured Coverage Start Date Coverage End Date [facility] [id number] [place] [address] [id number] Liz Pappas Self - patient is the insured Medical (General) History Medical History History ICD Code broken bones chicken pox measles mumps gestational diabetes Arthritis Back,Hip,and Knee pain Gall bladder problems Psoriasis/eczema Primary osteoarthritis, left ankle and f oot M19.072 Primary osteoarthritis, right ankle and foot M19.071 Lesion of plantar nerve, 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
--- OUTSIDE RECORDS SUMMARY | 2025-01-14 07:37 | XMS_ITS ---
PM EST Gender Identity Not on file Sexual Orientation Not on file Plan of Treatment Health Maintenance Due Date Last Done Comments Breast Cancer Screening 1960 DTaP,Tdap,and Td Vaccines (1 - Tdap) 1981 Pneumococcal Vaccine: 50+ Ye ars (1 of 1 - PCV) 02/16/2012 Zoster Vaccines (1 of 2) 02/16/2012 Depression Screening 05/08/2024 Colorectal Cancer Screening: Colonoscopy 07/01/2024 HIV Screening 07/01/2024 Hepatitis C Screening 07/01/2024 Social Influencers of Health Screening 07/01/2024 COVID-19 Vaccine (1 - 2023-2 5 season) 2025 Influenza Vaccine (#1) 2025 Cervical Cancer Screening: P ap Smear 03/25/2027 03/25/2024 RSV Immunization Adult Patie nts (1 - 1-dose 75+ series) 2037 HIB [...] age to complete this topic Meningococcal B Vaccine Aged Out No l onger eligible based on patient's age to complete [...] lesion or malignancy 03/27/2024 1:59 PM EST [facility] General Categorization Negative 03/27/2024 1:59 PM [facility] Specimen Adequacy Satisfactory for evaluation 03/27/2024 1:59 PM [facility] Pap Methodology Liquid Based Pap Test 03/27/2024 1:59 PM EST [facility] Disclaimer The Pap test is a screening test which carries an inherent false negative rate. These test results should be correlated with the patient's clinical findings and history. This Pap test was processed using an automated screening system. Technical cytopathology services provided by [facility], at [address] [place] [id number] (CLIA # [id number]/Leila Daly MD, Trimmer And Reinforcer.) 03/27/2024 1:59 PM [facility] Console Pap Interpretation Reported 03/27/2024 1:59 PM [facility] Brushing/Spatula Vaginal structure / Unknown 03/25/2024 03/26/2024 8:22 AM EST Bonilla Lawson MD LAB CYTOLOGY ORDERABLES Final Result Performing Organization Address City/State/[facility] Co de Phone Number [facility] [address] [place] [address], from Last 3 Months or Most Recently Relevant to Health Maintenance Insurance [facility] Care Teams Coke Inspector Relationship Specialty Start Date End Date Bonilla Lawson MD [address] [phone] PCP - General Obstetrics and Gynecology 05/30/24 Clinical Summary Created on: January 14, 2025 Liz Jones : 1960 Sex: Female Author Organization [address] [facility] Address [address] [place] [address] Phone Care Team Providers Care Coke Inspector Name Role Phone Bonilla Lawson MD Primary Care Provider [phone] Social History Tobacco Use Types Packs/Day Years Used Date Smoking Tobacco: Never Assessed Comments Unknown Sex and Gender Information Value Date Recorded Sex Assigned at Not on file Legal Sex Female 9:49
[2025-01-14 10:17] LABS: Hemoglobin A1C 154.6319 umol/L; Total Hemoglobin (HGBA1C) 3592.9745 umol/L
[2025-01-14 10:58] LABS: Alanine Aminotransferase 38 U/L (0-31); Albumin Level 4.7 g/dL (3.5-5.0); Alkaline Phosphatase 60 U/L (39-117); Anion Gap 15 (12-20); Aspartate Amino Transferase 37 U/L (5-31); Blood Urea Nitrogen 17 mg/dL (9-16); Calcium 9.4 mg/dL (8.4-10.2); Carbon Dioxide 26 mmol/L (22-29); Chloride 106 mmol/L (96-108); Cholesterol 156 mg/dL (<200); Estimated Glomerular Filt Rate > 60; HDL Cholesterol 51 mg/dL (>40); Potassium 4.1 mmol/L (3.3-5.1); Sodium 143 mmol/L (135-145); Total Protein 7.3 g/dL (6.5-8.0); Triglycerides 134 mg/dL (<150)
[2025-01-15 06:28] LABS: Lyme Abs Screen <0.90 index
== END 2025-01-14 07:34 | disposition home or self-care (01) ==
LOC: HO.HMGCLDS 07:33
PROVIDERS: PCP Family Medicine; Referring Provider Nurse Practitioner Family; Visit Provider Family Medicine
DX: Z00.00 Encounter for general adult medical examination without abnormal findings (principal); T14.90XA Injury, unspecified, initial encounter; E78.5 Hyperlipidemia, unspecified; R73.03 Prediabetes; R74.8 Abnormal levels of other serum enzymes; W57.XXXA Bitten or stung by nonvenomous insect and other nonvenomous arthropods, initial encounter
CPT/HCPCS: 36415; 80053; 80061; 83036; 86617; 86618

== ENCOUNTER 2025-01-20 08:17 | Outpatient (AMB) | payer BC, SELFPAY ==
--- OUTSIDE RECORDS SUMMARY | 2024-03-08 09:45 | XMS_ITS ---
Author Organization [facility] Address [address] [facility] [place] [address] Care Team Providers Care Clinical Resource Coordinator Name Role Phone Jason HART, Bonilla Primary Care Provider Janay Burgos [phone] Encounters Encounter Location Date Provider Diagnosis [address] [address] 03/08/2024 Janay Gonzales Plan Of Treatment No Information Progress Notes * Liz BLACKWOOD MDOB:1960 (64 yo F)Acc No.[id number]:03/08/2024 Progress Note Patient: Liz HEALY Provider: Catrina Gonzales DPM :1960 A ge:64 Y S ex:Female Date:03/08/2024 Address:[address] , [id number] Pcp:Bonilla Gomez MD Subjective: * Chief Complaints: [...] 05/08/2023 Generated for Omayrai luana/Ankita/eTransmitting on: 0 01/20/2025 09:14 AM EDT
--- OUTSIDE RECORDS SUMMARY | 2024-03-20 10:00 | XMS_ITS ---
Author Organization [facility] Address [address] [facility] [place] [address] Care Team Providers Care Metal Window Frame Maker Name Role Phone Jason HART, Bonilla Primary Care Provider Janay Burgos [phone] Encounters Encounter Location Date Provider Diagnosis [address] [address] 03/20/2024 Janay Gonzales Plan Of Treatment No Information Progress Notes * Liz BLACKWOOD MDOB:1960 (64 yo F)Acc No.[id number]:03/20/2024 Progress Note Patient: Liz HEALY Provider: Catrina Gonzales DPM :1960 A ge:64 Y S ex:Female Date:03/20/2024 Address:[address] , [id number] Pcp:Bonilla Gomez MD Subjective: * Chief Complaints: * * Medical History: Objective: * Vitals: Assessment: Plan: * Treatment: * Images: * The named appointment provid er may or may not be the originator of this progress note, and it is not deemed complete until electronically signed by the appointment provider. Sign off status: Pending * Provider: Catrina Gonzales DPM Date: 1 05/20/2023 Generated for Omayrai luana/Ankita/eTransmitting on: 0 01/20/2025 09:14 AM EDT
[2025-01-20 08:33] VITALS: BP 142/88; PULSE 73; O2SAT 98; BMI 26.1
--- NOTE | 2025-01-20 08:33 | A.OFFPC_ITS ---
Vital Signs 01/20/25 08:33 Height 5 ft 4 in Weight 152 lb 4 oz BMI 26.1 BP 142/88 H Blood Pressure Location Rt brachial Position Sitting Pulse 73 Pulse Source Pulse Oximeter Pulse Oximetry (%) 98 Oxygen Delivery Method Room Air Intake Visit Reasons: f/u pre-diabetes, HLD, neck issues Allergies house dust Allergy (Mild, Verified 01/20/25 08:37) Nasal congestion Seasonal Allergies Allergy (Mild, Verified 01/20/25 08:37) watery, cough Tobacco use date assessed: 01/20/25 Dental Screening Dental Screen Date: 01/20/25 Did you have a dental visit in the last 12 months?: Yes Did you have a dental problem in the last 6 months where you did not have access to dental care?: No Was dental information given to patient?: Patient has dentist HPI f/u pre-diabetes, HLD, neck issues HPI Details Patient presents to follow-up pre diabetes, hyperlipidemia, elevated liver enzymes and neck issues. A1c has climbed to 6.1% LDL cholesterol is 79 HDL 51 Liver enzymes are mildly elevated. Recent abdominal ultrasound shows hemangioma which is stable Also, patient's blood pressure has been running higher lately. Lastly, patient notes that she has had puffiness in her ankles PFSH Medical History Varicose vein of leg Breast cancer Hyperlipidemia Osteoporosis Surgical History Hx laparoscopic cholecystectomy Hx of varicose vein stripping H/O colonoscopy Hx of mastectomy History of open reduction and internal fixation (ORIF) procedure History of hysterectomy Family History Father Squamous cell carcinoma in situ Mother No problems noted. Sister No problems noted. Brother No problems noted. Brother No problems noted. Daughter No problems noted. Daughter No problems noted. 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 1. Little interest or pleasure in doing things: several days 2. Feeling down, depressed, or hopeless: several days 3. Trouble falling or staying asleep, or sleeping too much: not at all 4. Feeling tired or having little energy: several days 5. Poor appetite or overeating: several days 6. Feeling bad about yourself - or that you are a failure or have let yourself or your family down: not at all 7. Trouble concentrating on things, such as reading the newspaper or watching te levision: not at all 8. Moving or speaking so slowly that other people could have noticed. Or the opposite - being so fidgety or restless that you have been moving around a lot more than usual: not at all 9. Thoughts that you would be better off or of hurting yourself in some way: not at all Total score: 4 Depression Screening Interpretation: Negative Depression Screening Done: Yes Source: Developed by Drs. Nacho Alvarado, Iza Coles, Xavier Calvin and colleagues, with an educational eliseo from [employer] Thrive Questionnaire Date Thrive assessed: 08/05/24 I am a: Patient What is your living situation today?: I have a steady place to live Within the past 12 months, did the food you bought not last and you didn't have the money to get more?: Never true Within the past 12 months, did you worry whether your food would run out before you got money to buy more?: Never true Do you have trouble paying for medicines?: No Do you have trouble getting transportation to medical appointments?: No Do you have trouble paying your heating and electricity bill?: No Do you have trouble taking care of your child, family member or friend?: No Do you have trouble with day-to-day activities such as bathing, preparing meals, shopping, managing finances, etc.?: No Are you currently unemployed and looking for a job?: No Are you interested in more education?: No Please select the resources that you would like help with: None Currently or been in a relationship where the following occur: No concerns reported THRIVE Score: 0 AUDIT C Alcohol Use Questionnaire (AUDIT-C) 1. How often do you have a drink containing alcohol?: Monthly or less 2. How many drinks containing alcohol do you have on a typical day when you are drinking?: 1 or 2 3. How often do you have six or more drinks on one occasion?: Never Total Score: 1 KANDACE-7 AMB Questionnaire KANDACE-7 Date KANDACE - 7 assessed: 08/05/24 Feeling nervous, anxious, or on edge: 1 = Several days Not being able to stop or control worryin = Several days Worrying too much about different things: 1 = Several days Trouble relaxin = Several days Being so restless that it is hard to sit still: 0 = Not at all Becoming easily annoyed or irritable: 0 = Not at all Feeling afraid as if something awful might happen: 1 = Several days Total KANDACE-7 score (0-4 normal; 5-9 mild; 10-14 moderate; 15-21 severe): 5 Source: Developed by Drs. Nacho Alvarado, Iza Coles, Xavier Calvin and colleagues, with an educational eliseo from [employer] Review of Systems Const Denies chills, Denies fatigue, Denies fever(s), Denies headache(s) and Denies weakness ENT Denies dizziness and Denies headache(s) Card Denies chest pain, Denies lightheadedness, Denies dyspnea and Denies other (Palpitations) Resp Denies cough, Denies dyspnea, Denies wheezing and Denies other ( shortness of breath) Musc Denies numbness and Denies tingling Neuro Denies dizziness, Denies headache(s), Denies numbness, Denies tingling, Denies paresthesias and Denies weakness Psych Denies anxiety and Denies depression Endo Denies fatigue Ralph/Lymph Details: Mild bilateral lower extremity edema Aller/Immun Denies wheezing Physical exam (Primary Care) Vital Signs: Last Vital Signs Pulse 73 01/20/25 08:33 BP 142/88 H 01/20/25 08:33 Pulse Ox 98 01/20/25 08:33 Oxygen Delivery Method Room Air 01/20/25 08:33 BMI result Body Mass Index 26.1 Tobacco/Smoking Status: Tobacco use Status Tobacco use date assessed 01/20/25 01/20/25 08:39 Patient Tobacco Use Status Former Tobacco user 01/20/25 08:36 e-Cigarette/Vaping Use Never Used 01/20/25 08:36 PHQ-9: PHQ-9 Score PHQ-9: Total score 4 01/20/25 08:39 Depression Screening Interpretation: Negative Thrive Assessment: Date of Thrive Assessment Date Thrive assessed 08/05/24 01/20/25 08:36 Currently or been in a relationship where the following occur: No concerns reported Const General: no acute distress and well developed Nutritional Appearance: well nourished Orientation/consciousness: patient oriented x3 HENMT Head: Yes normocephalic and Yes atraumatic Eyes General: appearance normal, both eyes and all related structures Pupils: Equal, round and reactive pupils present EOM: EOMs intact bilaterally Resp Effort & Inspection: normal respiratory effort Auscultation: clear to auscultation bilaterally Cardio Rate: regular rate Rhythm: regular rhythm Heart sounds: S1 normal heart sound present, S2 normal heart sound present, no gallops, no murmurs and no rubs Neuro General: patient oriented x3 and gait normal Cranial nerves: Yes Equal, round and reactive pupils present Extrem Other: Trace lower extremity edema bilaterally. Psych Affect: normal affect Coding Level of Care Code Est Pt Level 4 (94686) Diagnoses Hyperlipidemia E78.5 Pre-diabetes R73.03 Elevated liver enzymes R74.8 Lower extremity edema R60.0 Elevated blood pressure reading R03.0 Assessment & Plan Assessment & Plan (1) Hyperlipidemia: Code(s): E78.5 - Hyperlipidemia, unspecified Category: Medical Plan: Lipids are controlled on atorvastatin. Continue current medication (2) Pre-diabetes: Code(s): R73.03 - Prediabetes Category: Medical Plan: A1c climbed to 6.1%. Middle of pre diabetes range Encouraged a diet lower in sugars and starches Will continue monitor (3) Elevated liver enzymes: Code(s): R74.8 - Abnormal levels of other serum enzymes Category: Medical Plan: Ongoing elevated liver enzymes though stable She has a stable hemangioma Continue good hydration We will continue to monitor (4) Lower extremity edema: Code(s): R60.0 - Localized edema Category: Medical Plan: Bilateral lower extremity edema and history of varicose veins and this appears be venous insufficiency Elevate legs Avoid salt and sodium Can use compression stockings and she has but has not been using lately (5) Elevated blood pressure reading: Code(s): R03.0 - Elevated blood-pressure reading, without diagnosis of hypertension Category: Medical Plan: Blood pressures have been creeping up She has a blood pressure monitor at home and she will let me know blood pressures are high home We discussed that if blood pressures are high again at next visit we should consider medication. Orders: Orders Complete Blood Count Auto Diff Today Z00.00 - Encounter for general adult medical examination without abnormal findings Vitamin D 25-OH Total Today E55.9 - Vitamin D deficiency, unspecified Comprehensive [place]. Panel Fast Today Z00.00 - Encounter for general adult medical examination without abnormal findings Microalbumin, Random (w Creat) Today I10 - Essential (primary) hypertension TSH reflex Free T4 Today Z00.00 - Encounter for general adult medical examination without abnormal findings UA CC w/rflx Micro + Cult Today Z00.00 - Encounter for general adult medical examination without abnormal findings
--- OUTSIDE RECORDS SUMMARY | 2025-01-20 09:14 | XMS_ITS | Clinical Summary ---
Author Organization [address] Address [address] [place] [address] Phone Care Team Providers Care Automotive Metalsmith Name Role Phone Bnoilla Lawson MD Primary Care Provider [phone] Social History Tobacco Use Types Packs/Day Years [...] Influencers of Health Screening 07/01/2024 COVID-19 Vaccine ( - 2023-2 5 season) 2025 Influenza Vaccine [...] intraepithelial lesion or malignancy 03/27/2024 1:59 PM [facility] General Categorization Negative 03/27/2024 1:59 PM [facility] Specimen Adequacy Satisfactory for evaluation 03/27/2024 1:59 PM [facility] Pap Methodology Liquid Based Pap Test 03/27/2024 1:59 PM [facility] Disclaimer The Pap test is a screening test which carries an inherent false negative rate. These test results should be correlated with the patient's clinical findings and history. This Pap test was processed using an automated screening system. Technical cytopathology services provided by [facility], at [address] [place] [id number] (CLIA # [id number]/Leila Daly MD, Business Performance Manager.) 03/27/2024 1:59 PM [facility] Console Pap Interpretation Reported 03/27/2024 1:59 PM [facility] Brushing/Spatula Vaginal structure / Unknown 03/25/2024 03/26/2024 8:22 AM EST Bonilla Lawson MD LAB CYTOLOGY ORDERABLES Final Result [facility] [address] [place] [address], from Last 3 Months or Most Recently Relevant to Health Maintenance Insurance [facility] Care Teams Automotive Metalsmith Relationship Specialty Start Date End Date Bonilla Lawson MD [address] [address] PCP - General Obstetrics and Gynecology 05/30/24
--- OUTSIDE RECORDS SUMMARY | 2025-01-20 09:14 | XMS_ITS | Patient Health Record ---
[facility] Address [address] [place] [address] Care Team Providers Care Case Preparer And Liner Name Role Phone Jason HART, Bonilla Primary Care Provider Janay Burgos Unavailable [phone] Allergies Allergen (clinical drug ingredient) Drug/Non Drug Allergy documented on EMR Reaction Allergy Type Onset Date Status Keflex hives Drug Allergy Active Reason For [...] W/U Status Risk Notes Problem Plantar wart ([id number]) Plantar wart (B07.0) Active confirmed Vital Signs Blood pressure diastolic 80 mm Hg 12/02/2024 Height 5ft4in in 12/02/2024 Blood pressure systolic 118 mm Hg 12/02/2024 Weight 154 lbs 12/02/2024 BMI 26.43 kg/m2 12/02/2024 Procedures Procedure Date Ordered Date Performed Result Body Sit e [id number]-Nicn Destruction, 05-2112/02/2024 N/A Encounters Encounter Location Date Provider Diagnosis [facility] [address] 12/02/2024 Janay Black Left foot pain M79.672 and Plantar wart B07.[address] [facility] [address] 03/07/2024 Janay Black Assessments Encounter Date Diagnosis (ICD Code) Assessment Notes Treatment Notes Treatment Clinical Notes Section Notes 12/02/2024 Left foot pain (ICD-10 - M79.672) 12/02/2024 Plantar wart (ICD-10 - B07.0) Plan Of Treatment Pending Test Test Name Order Date [id number] Destruction, 05-2112/07/2023 [id number] Destruction, 05-2112/02/2024 [id number] Plate 01/28/2019 [id number] 10/10/2011 [id number] 10/31/2011 [id number] 09/19/2011 14561- Debride <25 sq cm 10/31/2011 28158- Debride <25 sq cm 02/14/2019 [id number] SKIN/TISSUE 10/10/2011 [id number] SKIN/TISSUE 10/31/2011 Insurance Providers Payer Name Payer Address Payer Phone Subscriber Number Group Number Insured Name Patient Relationship to Insured Coverage Start Date Coverage End Date [facility] [address] [place] [address] [phone] [id number] Liz Pappas Self - patient is [...] bladder 2013 Hospitalization History Reason Date(Month/Year) [facility]- [facility]
--- OUTSIDE RECORDS SUMMARY | 2025-01-20 09:14 | XMS_ITS | Encounter Summary ---
Author Organization [facility] Address [address] [place] [address] Care Team Providers Care Parts Identification Technician Name Role Phone Bonilla Lawson MD Primary Care Provider [phone] Encounter Details Date Type Department Care Team (Latest Contact Info) Description 03/26/2024 Lab Requisition [facility] [address] [place] [address] Bonilla Lawson MD [address] [phone] Encounter for gynecological examination (general) (routine) without [...] lesion or malignancy 03/27/2024 1:59 PM EST [facility] General Categorization Negative 03/27/2024 1:59 PM EST [facility] Specimen Adequacy Satisfactory for evaluation 03/27/2024 1:59 PM EST [facility] Pap Methodology Liquid Based Pap Test 03/27/2024 1:59 PM EST [facility] Disclaimer The Pap test is a screening test which carries an inherent false negative rate. These test results should be correlated with the patient's clinical findings and history. This Pap test was processed using an automated screening system. Technical cytopathology services provided by [facility], at [address] [place] [address] (CLIA # [id number]/Leila Daly MD, Legal Clerk.) 03/27/2024 1:59 PM [facility] Console Pap Interpretation Reported 03/27/2024 1:59 PM [facility] Brushing/Spatula Vaginal structure / Unknown 03/25/2024 03/26/2024 8:22 AM EST us Bonilla Lawson MD LAB CYTOLOGY ORDERABLES Final Result [facility] [address] [place] [address], documented in this encounter Visit Diagnoses Diagnosis Encounter for gynecological examination (general) (routine) without abnormal findings documented in this encounter Care Teams Parts Identification Technician Relationship Specialty Start Date End Date Bonilla Lawson MD [address] [address] PCP - General Obstetrics and Gynecology 05/30/24 documented as of this encounter
== END 2025-01-20 08:58 | disposition home or self-care (01) ==
LOC: HO.HMCFM 08:18
PROVIDERS: PCP Family Medicine; Visit Provider Family Medicine
DX: E78.5 Hyperlipidemia, unspecified (principal); R73.03 Prediabetes; R74.8 Abnormal levels of other serum enzymes; R60.0 Localized edema; R03.0 Elevated blood-pressure reading, without diagnosis of hypertension